=== PATIENT | male | born 1985 | race Caucasian/White ===

== ENCOUNTER 2016-10-13 08:31 | Inpatient (IN) | payer OTHER ==
[~2016-10-13] VITALS: Ht 185.4 cm; Wt 100.0 kg
[2016-10-13] MEDS ORDERED: SOD CHLORIDE 0.9% 1,000 ML IV STA ×3 (09:20→12:19)
--- NOTE | 2016-10-13 09:20 | ERD ---
ER Documentation Chief Complaint Date/Time DATE: 10/13/16 TIME: 09:10 Chief Complaint syncopal episode yesterday, abdominal pain today. and feeling altered HPI 31-year-old male with history of pancreatitis, heroin and alcohol abuse recently in recovery, relapse last week but has been sober for 3 days brought to the ED by his mother for evaluation of abdominal pain and syncopal episode. Yesterday at a fast food restaurant went to the bathroom and had a syncopal episode. Patient states he fell chipping his front tooth was on the floor for approximately 20 minutes before he woke up. Denies neck or back pain. Now with increasing, nonradiating, sharp and crampy epigastric pain and nausea but no vomiting, diarrhea or constipation. He denies hematemesis or hematochezia. No relieving or exacerbating factors. Generalized body aches and malaise. Denies chest pain or palpitation. No shortness of breath or cough. No fevers or chills. ROS All systems reviewed and are negative except as per history of present illness. Medications Home Meds No Active Prescriptions or Reported Meds Allergies Allergies: Coded Allergies: No Known Drug Allergies (Verified Allergy, Unknown, 10/13/16) PMhx/Soc Reviewed in chart. As per HPI per Medical and Surgical Hx: pt denies Surgical Hx Hx Miscellaneous Medical Probl: Yes (pancreatitis) Hx Alcohol Use: Yes Hx Substance Use: No Hx Tobacco Use: Yes Smoking Status: Current some day smoker FmHx No cancer, stroke or sudden cardiac . Physical Exam Vitals Vital Signs Date Time Temp Pulse Resp B/P Pulse Ox O2 Delivery O2 Flow Rate FiO2 10/13/16 11:54 88 18 133/88 100 Room Air 10/13/16 08:35 98.6 109 20 154/92 99 Physical Exam Const: Alert, ill-appearing, anxious in mild distress Head: Atraumatic Eyes: Normal Conjunctiva ENT: Normal External Ears, Nose and Mouth. Neck: Full range of motion. Nontender. No meningismus. Resp: Clear to auscultation bilaterally Cardio: Regular rate and rhythm, no murmurs Abd: Soft, epigastric tenderness. No rebound or guarding. Nondistended Skin: Multiple skin lesions lesions scabs and excoriations. Back: No midline or flank tenderness Ext: No cyanosis, or edema Neur: Awake and alert Psych: Patient appears anxious but not depressed. Result Diagram: 10/13/1658 10/13/16 0958 Results 24 hrs Laboratory Tests Test 10/13/16 09:17 10/13/16 09:58 Urine Amphetamines Screen NEGATIVE Urine Barbiturates NEGATIVE Urine Benzodiazepines Screen NEGATIVE Urine Bilirubin NEGATIVE Urine Cannabinoids NEGATIVE Urine Clarity CLEAR Urine Cocaine Screen NEGATIVE Urine Color YELLOW Urine Glucose NEGATIVE% Urine Hemoglobin 3+ Urine Ketones NEGATIVE Urine Leukocyte Esterase NEGATIVE Urine Microscopic RBC 0-2/HPF Urine Microscopic WBC 0-2/HPF Urine Nitrite NEGATIVE Urine Opiates Screen POSITIVE Urine Specific Erin >=1.030 Urine Total Protein 2+ Urine Urobilinogen 0.2 E.U./dL Urine pH 6.0 Alanine Aminotransferase (ALT/SGPT) 36IU/L Albumin 5.0g/dl Albumin/Globulin Ratio 1.47 Alkaline Phosphatase 119IU/L Anion Gap 22 Aspartate Amino Transf (AST/SGOT) 80IU/L Basophils # 0.010^3/ul Basophils % 0.0% Blood Urea Nitrogen 30mg/dl Calcium Level 8.8mg/dl Carbon Dioxide Level 35mmol/L Chloride Level 87mmol/L Creatinine 1.73mg/dl Direct Bilirubin 0.00mg/dl Eosinophils # 0.010^3/ul Eosinophils % 0.0% Ethyl Alcohol Level < 10.0mg/dl Globulin 3.40g/dl Glucose Level 143mg/dl Hematocrit 43.3% Hemoglobin 15.3g/dl Indirect Bilirubin 1.4mg/dl Lipase 3149U/L Lymphocytes # 1.110^3/ul Lymphocytes % 5.5% Mean Corpuscular Hemoglobin 29.7pg Mean Corpuscular Hemoglobin Concent 35.4g/dl Mean Corpuscular Volume 84.1fl Mean Platelet Volume 8.2fl Monocytes # 1.910^3/ul Monocytes % 10.0% Neutrophils # 16.410^3/ul Neutrophils % 84.5% Nucleated Red Blood Cells # 0.010^3/ul Nucleated Red Blood Cells % 0.0/100WBC Platelet Count 06936^3/UL Potassium Level 4.6mmol/L Red Blood Count 5.1510^6/ul Red Cell Distribution Width 14.4% Sodium Level 139mmol/L Total Bilirubin 1.4mg/dl Total Protein 8.4g/dl White Blood Count 19.410^3/ul Current Medications Medications (Trade) Dose Ordered Sig/Sheryl Route PRN Reason Start Time Stop Time Status Last Admin Dose Admin Sodium Chloride (NS) 1,000 ml @ 1,000 mls/hr Q1H STAT IV 10/13/16 09:20 10/13/16 10:19 DC 10/13/16 09:20 Ondansetron HCl (Zofran Odt) 4 mg ONCE STAT ODT 10/13/16 10:15 10/13/16 10:16 DC 10/13/16 10:21 Ketorolac Tromethamine 15 mg 15 mg ONCE STAT IM 10/13/16 10:15 10/13/16 10:16 DC 10/13/16 10:22 Sodium Chloride (NS) 1,000 ml @ 1,000 mls/hr Q1H STAT IV 10/13/16 10:48 10/13/16 11:47 DC Lidocaine 20 ml 20 ml ONCE ONCE SC 10/13/16 11:30 10/13/16 11:33 DC 10/13/16 13:20 Potassium Chloride/Dextrose/ Sod Cl (D5-1/2ns + KCl 20 Meq) 1,000 ml @ 125 mls/hr Q8H IV 10/13/16 11:58 10/13/16 14:53 IV Flush (NS 3 ml) 3 ml PER PROTOCOL IV 10/13/16 12:00 Ondansetron HCl (Zofran Inj) 4 mg Q6H PRN IV NAUSEA AND/OR VOMITING 10/13/16 12:00 10/13/16 14:53 Morphine Sulfate (morphine) 2 mg Q4H PRN IV SEVERE PAIN LEVEL 7-10 10/13/16 12:00 10/13/16 14:43 DC Morphine Sulfate (morphine) 4 mg ONCE STAT IV 10/13/16 12:12 10/13/16 12:13 DC 10/13/16 12:25 PROCEDURE: CT Brain without contrast. CLINICAL INDICATION: Patient experiencing Syncope/head injury TECHNIQUE: A multiplanar CT of the brain was performed on a CT scanner utilizing axial imaging from the skull base through the vertex without IV contrast. The CTDIvol is 45.01 mGy and the DLP is 720.23 mGycm. One or more of the following dose reduction techniques were utilized: Automated exposure control, adjustment of the mA and/or kV according to patient size, use of iterative reconstruction technique. COMPARISON: None FINDINGS: No evidence of intracranial hemorrhage or abnormal extra-axial fluid collection. The brain parenchyma is normal attenuation morphology with preservation of braxton white differentiation and age appropriate size of the ventricles and subarachnoid spaces. The posterior fossa contents, brainstem, craniocervical junction, orbits, pituitary axis, paranasal sinuses, mastoid air cells, and calvarium are unremarkable. IMPRESSION: 1. No intracranial hemorrhage or acute intracranial. 2. In clinical symptoms persist, MRI is recommended for further evaluation. RPTAT:AAJJ Physician Bebeto Date Time Electronically viewed and signed by Physician Bebeto on 10/13/2016 10:20 VARGAS/ PROCEDURE: US Abdomen. CLINICAL INDICATION: Abdominal Pain TECHNIQUE: Multiple real-time images were acquired of the patient's abdomen utilizing a high resolution transducer. COMPARISON: None FINDINGS: The liver demonstrates increased echogenicity. The liver is normal in size. The liver measures 15.4 cm in length. There are no focal solid lesions seen. There is no intrahepatic biliary duct dilatation. The portal vein is patent with normal direction of flow. No gallstones are identified within the gallbladder. There is no pericholecystic fluid or gallbladder wall thickening. The common bile duct measures 4.4 mm in maximal dimension. The visualized portions of the pancreas are unremarkable. Right kidney is within normal limits and measures 11.6 cm. No free fluid is identified. RPTAT: AA IMPRESSION: Mild fatty infiltration of the liver. Otherwise unremarkable exam. .Medhat Gautam MD, MD Date Time Electronically viewed and signed by .Medhat Gautam MD, MD on 10/13/2016 13:07 .M/ EKG: Time: 14:04. Sinus rhythm. Ventricular rate 80, normal ND and QRS intervals. No acute ST segment elevation or depression. No axis deviation or ectopy. EP Impression: Normal EKG Procedures/MDM DOCUMENTS REVIEWED: ED nurse, no prior records available MEDICAL DECISION MAKIN-year-old male with history of pancreatitis, heroin and alcohol abuse recently in recovery, relapse last week but has been sober for 3 days brought to the ED by his mother for evaluation of abdominal pain and syncopal episode. Elevated lipase consistent with pancreatitis. Acute renal insufficiency and dehydration with BUN/creatinine 30/1.73. Syncopal episode of uncertain etiology. No cardiac dysrhythmia. No CT evidence of acute intracranial injury, bleed, mass or infarct. Leukocytosis without evidence of occult infectious process. Patient be admitted to med/surg for further evaluation and management Counseled patient and family regarding diagnostic workup, diagnosis and need for followup. Understands to return to ED if symptoms recur, worsen or any other concerns. Departure Diagnosis: Primary Impression: Acute pancreatitis Pancreatitis type: unspecified pancreatitis type Acute pancreatitis complication: unspecified Qualified Code: K85.90 - Acute pancreatitis, unspecified complication status, unspecified pancreatitis type Additional Impressions: Acute renal insufficiency Dehydration Opiate abuse, episodic Syncope Syncope type: unspecified Qualified Code: R55 - Syncope, unspecified syncope type Condition: Serious YUN DELGADO MD Oct 13, 2016 09:20 and alcohol abuse recently in recovery, relapse last week but has been sober for 3 days brought to the ED by his mother for evaluation of abdominal pain and syncopal episode. Elevated lipase consistent with pancreatitis. Acute renal insufficiency and dehydration with BUN/creatinine 30/1.73. Syncopal episode of uncertain etiology. No cardiac dysrhythmia. No CT evidence of acute intracranial injury, bleed, mass or infarct. Leukocytosis without evidence of occult infectious process. Patient be admitted to med/surg for further evaluation and management Counseled [patient and family] regarding diagnostic workup, diagnosis and need for followup. Understands to return to ED if symptoms recur, worsen or any other concerns. Departure Diagnosis: Primary Impression: Acute pancreatitis Pancreatitis type: unspecified pancreatitis type Acute pancreatitis complication: unspecified Qualified Code: K85.90 - Acute pancreatitis, unspecified complication status, unspecified pancreatitis type Additional Impressions: Acute renal insufficiency Dehydration Opiate abuse, episodic Syncope Syncope type: unspecified Qualified Code: R55 - Syncope, unspecified syncope type Condition: Serious YUN DELGADO MD Oct 13, 2016 09:20
[2016-10-13 09:39] LABS: ADD UMIC YES; URINE BILIRUBIN (Dip) NEGATIVE (NEGATIVE); URINE BLOOD (Dip) 3+ (NEGATIVE); URINE COLOR YELLOW (YELLOW); URINE GLUCOSE (Dip) NEGATIVE (NEGATIVE); URINE KETONES (Dip) NEGATIVE (NEGATIVE); URINE LEUKOCYTE ESTERASE (Dip) NEGATIVE (NEGATIVE); URINE NITRITE (Dip) NEGATIVE (NEGATIVE); URINE TOTAL PROTEIN (Dip) 2+ (NEGATIVE); URINE UROBILINOGEN (Dip) 0.2 E.U./dL (0.1-1.0)
[2016-10-13 09:52] LABS: URINE RBCS 0-2 /HPF (0)
[2016-10-13 10:13] LABS: HEMATOCRIT 43.3 % (42.0-52.0); HEMOGLOBIN 15.3 g/dl (14.0-18.0); LYMPHOCYTES # 1.1 10^3/ul (0.8-2.9); LYMPHOCYTES % 5.5 % (15.0-51.0); MEAN CORPUSCULAR HEMOGLOBIN 29.7 pg (29.0-33.0); MEAN CORPUSCULAR HGB CONC 35.4 g/dl (32.0-37.0); MEAN CORPUSCULAR VOLUME 84.1 fl (82.0-101.0); MEAN PLATELET VOLUME 8.2 fl (7.4-10.4); MONOCYTE # 1.9 10^3/ul (0.3-0.9); NEUTROPHIL # 16.4 10^3/ul (1.6-7.5); NEUTROPHILS % 84.5 % (39.0-77.0); PLATELET COUNT 207 10^3/UL (140-440); RED BLOOD COUNT 5.15 10^6/ul (4.70-6.10); RED CELL DISTRIBUTION WIDTH 14.4 % (11.5-14.5); UNCORRECTED WBC 19.4 10^3/ul (4.8-10.8); WHITE BLOOD COUNT 19.4 10^3/ul (4.8-10.8)
[2016-10-13 10:15] LABS: CHLORIDE 87 mmol/L (97-110); POTASSIUM 4.6 mmol/L (3.5-5.1); SODIUM 139 mmol/L (135-144)
[2016-10-13] MEDS ORDERED: KETOROLAC 15 MG INJ IM STA (10:15)
[2016-10-13] MEDS ORDERED: ONDANSETRON (ODT) 4 MG TAB ODT STA (10:15)
[2016-10-13 10:18] LABS: ALANINE AMINOTRANSFERASE 36 IU/L (13-69); ALBUMIN/GLOBULIN RATIO 1.47; ALKALINE PHOSPHATASE 119 IU/L (42-121); ANION GAP 22 (8-16); ASPARTATE AMINO TRANSFERASE 80 IU/L (15-46); BILIRUBIN,INDIRECT 1.4 mg/dl (0-1.1); BILIRUBIN,TOTAL 1.4 mg/dl (0.2-1.3); BLOOD UREA NITROGEN 30 mg/dl (7-20); CALCIUM 8.8 mg/dl (8.4-10.2); CARBON DIOXIDE 35 mmol/L (21-31); CREATININE 1.73 mg/dl (0.61-1.24); GLUCOSE 143 mg/dl (70-220); TOTAL PROTEIN 8.4 g/dl (6.1-8.1)
[2016-10-13 10:19] LABS: CONDITION 1
--- NOTE | 2016-10-13 10:21 | RADRPT ---
PROCEDURE: CT Brain without contrast. CLINICAL INDICATION: Patient experiencing Syncope/head injury TECHNIQUE: A multiplanar CT of the brain was performed on a CT scanner utilizing axial imaging fro m the skull base through the vertex without IV contrast. The CTDIvol is 45.01 mGy and the DLP is 72 0.23 mGycm. One or more of the following dose reduction techniques were utilized: Automated exposu re control, adjustment of the mA and/or kV according to patient size, use of iterative reconstructio n technique. COMPARISON: None FINDINGS: No evidence of intracranial hemorrhage or abnormal extra-axial fluid collection. The brain parenchyma is normal attenuation morphology with preservation of braxton white differentiatio n and age appropriate size of the ventricles and subarachnoid spaces. The posterior fossa contents, brainstem, craniocervical junction, orbits, pituitary axis, paranasal sinuses, mastoid air cells, and calvarium are unremarkable. IMPRESSION: 1. No intracranial hemorrhage or acute intracranial. 2. In clinical symptoms persist, MRI is recommended for further evaluation. RPTAT:AAJJ Physician Bebeto Date Time Electronically viewed and signed by Physician Bebeto on 10/13/2016 10:20 VARGAS/
[2016-10-13 11:08] LABS: ETHANOL < 10.0 mg/dl
[2016-10-13 11:11] LABS: BARBITURATES NEGATIVE (NEGATIVE); BENZODIAZEPINES NEGATIVE (NEGATIVE); CANNABINOIDS NEGATIVE (NEGATIVE); COCAINE NEGATIVE (NEGATIVE); OPIATES POSITIVE (NEGATIVE)
[2016-10-13] MEDS ORDERED: LIDOCAINE 1% (MDV) 20 ML INJ SC ONE (11:30)
[2016-10-13] MEDS ORDERED: morphine 2 MG INJ IV PRN (12:00)
[2016-10-13] MEDS ORDERED: NACL 0.9% 3 ML SYG IV SCH (12:00)
[2016-10-13] MEDS ORDERED: morphine 4 MG/ML VIAL IV STA (12:12)
[2016-10-13] MEDS ORDERED: ONDANSETRON 4 MG INJ IV PRN (12:30)
[2016-10-13] MEDS ORDERED: ACETAMINOPHEN 325 MG TAB PO PRN (12:30)
--- NOTE | 2016-10-13 13:07 | RADRPT ---
PROCEDURE: US Abdomen. CLINICAL INDICATION: Abdominal Pain TECHNIQUE: Multiple real-time images were acquired of the patient's abdomen utilizing a high resol ution transducer. COMPARISON: None FINDINGS: The liver demonstrates increased echogenicity. The liver is normal in size. The liver measures 15.4 cm in length. There are no focal solid lesions seen. There is no intrahepatic biliary duct dilatatio n. The portal vein is patent with normal direction of flow. No gallstones are identified within the gallbladder. There is no pericholecystic fluid or gallbladd er wall thickening. The common bile duct measures 4.4 mm in maximal dimension. The visualized portions of the pancreas are unremarkable. Right kidney is within normal limits and measures 11.6 cm. No free fluid is identified. RPTAT: AA IMPRESSION: Mild fatty infiltration of the liver. Otherwise unremarkable exam. .Medhat Gautam MD, Date Time Electronically viewed and signed by .Medhat Gautam MD, on 10/13/2016 13:07 .Lilian/
[2016-10-13 14:38] VITALS: BP 131/85; RESP 20
[2016-10-13] MEDS ORDERED: HYDROmorphONE 1 MG/ML SYG IV STA (14:41)
--- NOTE | 2016-10-13 14:47 | RADRPT ---
PROCEDURE: XR Chest. CLINICAL INDICATION: Left PICC line placement. TECHNIQUE: Single AP portable chest COMPARISON: None. FINDINGS: The cardiomediastinal silhouette is within normal limits. Left PICC line tip overlies the cavoatrial junction .The lungs are clear though pleural effusion or focal consolidation. No pneumothorax. The osseous structures and soft tissues are unremarkable. IMPRESSION: 1. No evidence for active cardiopulmonary disease. 2. Left PICC line catheter tip in satisfactory position. RPTAT:AAJJ Daniel Silva Physician Date Time Electronically viewed and signed by Physician Bebeto on 10/13/2016 14:47 VARGAS/
[2016-10-13] MEDS: ONDANSETRON 4 MG INJ IV PRN ×2 (14:53→22:50)
[2016-10-13] MEDS: D5W-0.45 NACL + KCL 20 MEQ 1,000 ML IV SCH ×2 (14:53→19:58)
--- NOTE | 2016-10-13 15:14 | RADRPT ---
PROCEDURE: Ultrasound proximal upper extremity for PICC placement CLINICAL INDICATION: PICC placement TECHNIQUE: Sonographic evaluation of the proximal left upper extremity vessels was performed utilizi ng a high-frequency linear transducer. COMPARISON: None available FINDINGS: Limited evaluation of the proximal upper extremity for vascular access for PICC placement. Grossly, no abnormality is seen. IMPRESSION: 1. Unremarkable limited proximal left upper extremity ultrasound for PICC placement. RPTAT: HDWR .Hernandez Reis MD, MD Date Time Electronically viewed and signed by .Hernandez Reis MD, MD on 10/13/2016 15:14 .R/
[2016-10-13 15:17] VITALS: Ht 185.4 cm; Wt 100.0 kg
[2016-10-13] MEDS: PIPER-TAZO 3.375 GM IV (PMX) 100 ML IVPB SCH ×2 (15:37→21:33)
--- NOTE | 2016-10-13 17:08 | HP ---
DATE OF ADMISSION: 10/13/2016 TIME OF EVALUATION: 1300 hours. REASON FOR ADMISSION: Abdominal pain. HISTORY OF PRESENT ILLNESS: This is a 31-year-old male with a past medical history of pancreatitis, heroin and alcohol abuse, recently in recovery, with last alcohol consumption approximately 3 days ago. The patient was brought to the emergency room by his mother for evaluation of abdominal pain. The patient also verbalized that he had a syncopal episode at a fast food restaurant on . The patient verbalized that he fell face down with resultant chipping of the front tooth and some nasal bleed. He was on the floor for approximately 20 minutes before he woke up by himself. The patient verbalized the abdominal pain as sharp, epigastric and crampy with associated nausea and poor oral intake. The patient denied any diarrhea or constipation. He denied any melena or hematemesis. The patient was complaining of generalized body aches and malaise. He denied any chest pain, dyspnea, palpitations or headache. In the emergency room, the patient was noticed to have leukocytosis. The patient was also noticed to have an elevated lipase level (3149). The patient was also noticed to be in acute renal failure with a BUN and creatinine of 30 and 1.7. The patient's urine drug toxicology in the emergency room was positive for opioids. The patient underwent a brain CT scan in the emergency room that was negative for any acute intracranial findings. The patient underwent a gallbladder ultrasound that showed mild fatty infiltration of the liver with no evidence of any cholelithiasis. In the emergency room, the patient was treated with IV analgesics and IV fluids. PAST MEDICAL HISTORY: Pancreatitis. PAST SURGICAL HISTORY: Denies. HOME MEDICATIONS: None. ALLERGIES: NONE. SOCIAL HISTORY: Current some day smoker. He used to be a heroin abuser, but currently staying clean. Prior history of alcohol abuse and has been staying sober until the recent episode of drinking. REVIEW OF SYSTEMS: A 12-point review of systems were negative other that what is mentioned in history of present illness. PHYSICAL EXAMINATION: VITAL SIGNS: Temperature 98.2, pulse rate 88, respiratory rate 20, blood pressure 131/87, oxygen saturation 100% on room air. GENERAL: This is a well-built, well-nourished male patient lying in bed in mild to moderate distress secondary to underlying pain. HEENT: Head normocephalic and atraumatic. Eyes: Anicteric sclerae. Conjunctivae clear. ENT: Nasal septum is midline. Oral mucosa is dry. NECK: Supple. No JVD noticed. RESPIRATORY: Bilaterally diminished breath sounds. No adventitious breath sounds heard. No use of accessory muscles of respiration. CARDIAC: Regular rate and rhythm. No murmurs heard. GASTROINTESTINAL: Abdomen soft. Diffuse tenderness to touch. Abdominal guarding. Bowel sounds hypoactive in all 4 quadrants. GENITOURINARY: Deferred. EXTREMITIES: No cyanosis, no clubbing, no edema. Peripheral pulses are palpable. NEUROLOGIC: The patient is awake, alert and oriented. Cranial nerves are grossly intact. LABORATORY AND DIAGNOSTIC DATA: WBC 19.4, hemoglobin 15.3, hematocrit 43.3, platelet count 207. Sodium 139, potassium 4.6, chloride 87, carbon dioxide 37, anion gap 22, BUN 30, creatinine 1.73, glucose 143, calcium 8.8, total bilirubin 1.4 and direct bilirubin 1.4. AST 80, ALT 36, alkaline phosphatase 190, total protein 8.4, albumin 5.0, globulin 3.40, lipase 3149. Urine drug toxicology. Positive for opioids. Urinalysis: Urine nitrite negative, urine leukocyte esterase negative, urine microscopic WBC 0 to 2, urine hemoglobin 3+, urine total protein 2+, urine glucose negative. Brain CT scan. No acute intracranial hemorrhage or abnormal extraaxial fluid collection. Gallbladder ultrasound. Mild fatty infiltration of the liver. Otherwise, unremarkable exam. 12-lead EKG: Normal sinus rhythm. IMPRESSION: This is a 31-year-old male with past medical history of pancreatitis , who came to the emergency room with multiple complaints who was found to have evidence of acute pancreatitis who will be admitted here for further treatment and evaluation. ASSESSMENT AND PLAN: 1. Acute pancreatitis. Most probably secondary to underlying alcohol abuse. The patient has no evidence of any cholelithiasis. A fasting lipid panel will be obtained to evaluate for any underlying hypertriglyceridemia. The patient will be kept n.p.o. He will be provided with adequate pain control. The patient will be provided with IV fluids. The patient will be started on antibiotics since the patient has underlying leukocytosis. Nevertheless, if there is no evidence of any underlying infection, antibiotics can be discontinued later. 2. Acute kidney injury. Etiology unclear. Most probably secondary to dehydration versus from hemodynamics. Nephrotoxic drugs will be used with caution. The patient will be adequately hydrated using IV fluids. 3. Anion gap metabolic acidosis. Most probably secondary to underlying pancreatitis. The patient will be adequately hydrated using IV fluids. The patient has no evidence of ketosis. 4. Recent episode of syncope. Etiology unclear. This could be secondary to intoxication. The patient's brain CT scan was negative for any acute intracranial findings. If there is high suspicion for other etiologies, further imaging studies will be done. 5. Alcoholism. The patient will be started on a Librium taper to avoid any alcohol withdrawal with delirium. The patient will also be started on p.r.n. IV benzodiazepines for any significant delirium tremens. A social work consult will be obtained. The patient will be provided with a daily banana bag. Plan. The patient will be admitted to inpatient medical/surgical floor. The patient will be kept n.p.o. The patient will be started on DVT prophylaxis and gastrointestinal prophylaxis. The patient will remain a FULL CODE. Activities will be as tolerated. The rest of the patient's management will be based on the clinical course and the results of diagnostic studies. Based on the patient's clinical presentation, he most probably requires at least 2 midnights' stay for further management and evaluation of his clinical presentation. The case and management of this patient was fully discussed with Dr. Kowalski. Approximately 45 minutes was spent on the history and physical on this patient. RAE KOWALSKI MD, AM/ANGELA Conf#: [id number] DID#: [id number] MTDD
[2016-10-13] MEDS: morphine 4 MG/ML VIAL IV PRN ×2 (17:31→21:33)
[2016-10-13 19:43] VITALS: BP 153/96; RESP 18
[2016-10-13] MEDS: HYDROCODONE/APAP (5/325) TAB PO PRN (20:22)
[2016-10-13] MEDS: FAMOTIDINE 20 MG INJ IV SCH (20:22)
[2016-10-13] MEDS: CHLORDIAZEPOXIDE 25 MG CAP PO SCH (20:22)
[2016-10-13] MEDS ORDERED: morphine 2 MG INJ IV ONE (23:00)
[2016-10-14] MEDS: D5W-0.45 NACL + KCL 20 MEQ 1,000 ML IV SCH ×3 (00:18→19:58)
[2016-10-14] MEDS: morphine 4 MG/ML VIAL IV PRN ×3 (00:30→06:12)
[2016-10-14] MEDS: PIPER-TAZO 3.375 GM IV (PMX) 100 ML IVPB SCH ×3 (05:18→21:15)
[2016-10-14 06:26] LABS: CHOL/HDL RATIO 3.1 RATIO; MAGNESIUM 1.3 mg/dl (1.7-2.5); PHOSPHORUS 1.9 mg/dl (2.5-4.9)
[2016-10-14 06:38] LABS: BASOPHILS % 0.1 % (0.0-2.0); HEMATOCRIT 35.3 % (42.0-52.0); HEMOGLOBIN 12.5 g/dl (14.0-18.0); LYMPHOCYTES # 0.5 10^3/ul (0.8-2.9); LYMPHOCYTES % 5.5 % (15.0-51.0); MEAN CORPUSCULAR HEMOGLOBIN 29.9 pg (29.0-33.0); MEAN CORPUSCULAR HGB CONC 35.3 g/dl (32.0-37.0); MEAN CORPUSCULAR VOLUME 84.6 fl (82.0-101.0); MONOCYTE # 0.9 10^3/ul (0.3-0.9); MONOCYTES % 9.6 % (0.0-11.0); NEUTROPHIL # 8.3 10^3/ul (1.6-7.5); NEUTROPHILS % 84.8 % (39.0-77.0); PLATELET COUNT 127 10^3/UL (140-440); RED BLOOD COUNT 4.17 10^6/ul (4.70-6.10); RED CELL DISTRIBUTION WIDTH 14.4 % (11.5-14.5); UNCORRECTED WBC 9.8 10^3/ul (4.8-10.8); WHITE BLOOD COUNT 9.8 10^3/ul (4.8-10.8)
[2016-10-14 06:57] LABS: THYROID STIMULATING HORMONE 0.505 MIU/L (0.465-4.680)
[2016-10-14 06:58] LABS: CONDITION 1
[2016-10-14 07:32] VITALS: BP 136/88; RESP 20
[2016-10-14 07:44] LABS: ALBUMIN 3.1 g/dl (3.3-4.9)
[2016-10-14 07:47] LABS: CREATININE 1.75 mg/dl (0.61-1.24)
[2016-10-14 07:48] LABS: ALBUMIN/GLOBULIN RATIO 1.24; BILIRUBIN,INDIRECT 1.9 mg/dl (0-1.1); BILIRUBIN,TOTAL 1.9 mg/dl (0.2-1.3); CALCIUM 7.4 mg/dl (8.4-10.2); TOTAL PROTEIN 5.6 g/dl (6.1-8.1)
[2016-10-14 08:15] LABS: POTASSIUM 6.8 mmol/L (3.5-5.1)
[2016-10-14] MEDS: CHLORDIAZEPOXIDE 25 MG CAP PO SCH ×3 (09:00→21:03)
[2016-10-14] MEDS: ONDANSETRON 4 MG INJ IV PRN (09:08)
[2016-10-14] MEDS: FAMOTIDINE 20 MG INJ IV SCH ×2 (09:09→21:03)
[2016-10-14] MEDS: HYDROmorphONE 1 MG/ML SYG IV PRN ×5 (09:15→21:15)
--- NOTE | 2016-10-14 09:20 | PN ---
Date/Time of Note Date/Time of Note DATE: 10/14/16 TIME: 09:17 Assessment/Plan VTE Prophylaxis VTE Prophylaxis Intervention: ambulation, SCD's Lines/Catheters IV Catheter Type (from Nrs): PICC Line Central line still needed: Yes Assessment/Plan Chief Complaint/Hosp Course Assessment and plan 1. Acute pancreatitis. Likely secondary to underlying alcohol abuse. No reported evidence of cholelithiasis. We'll continue on IV hydration. Analgesics as needed. 2. Acute kidney injury. Baseline unknown. Appears to be slowly worsening. 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 3. Metabolic acidosis likely secondary to #1. Continue on IV hydration 4. Reported episode of syncope. Etiology unknown. CT scan of the brain was negative for any acute intracranial findings. Of note patient did test positive for opioids upon admission. Suspect secondary to the aforementioned. We'll monitor for now. 5. History of alcohol abuse. 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 Continue on banana bag. 6. Hyperkalemia. Patient noted with normal potassium level yesterday. Will repeat lab and provide with Kayexalate as needed. Disposition and plan: Patient still noted with elevated lipase levels. Still with abdominal pain. Continue with IV hydration and analgesics. Await clinical improvement of pancreatitis. Discussed plan of care with Dr. Schwartz Problems: Subjective 24 Hr Interval Summary Free Text/Dictation Still reports having mid abdominal pain. Exam/Review of Systems Vital Signs Vitals Vital Signs Date Time Temp Pulse Resp B/P Pulse Ox O2 Delivery O2 Flow Rate FiO2 10/14/16 07:32 98.0 77 20 136/88 99 10/13/16 14:05 Room Air Intake and Output 10/13/16 10/13/16 10/14/16 15:00 23:00 07:00 Intake Total 500 ml 1600 ml Output Total 654 ml Balance 500 ml 946 ml Exam General: No acute signs or symptoms of distress Eyes: pupils equal round, Anicteric sclera Neck: Supple nontender, no JVD Cardiac: S1, S2 auscultated, regular rhythm and rate Pulmonary: No coarse rhonchi or breathing auscultated GI: [Pain upon palpation epigastric area Extremities: No edema bilateral lower extremities Skin: Clean dry and intact Neurologic: Alert to person place and time and situation Results Result Diagram: 10/14/1651110/14/16511 Results 24 hrs Laboratory Tests Test 10/13/16 09:58 10/14/16 05:12 10/14/16 08:56 Alanine Aminotransferase (ALT/SGPT) 36 37 Albumin 5.0 H 3.1 #L Albumin/Globulin Ratio 1.47 1.24 Alkaline Phosphatase 119 72 Anion Gap 22 H 16 Aspartate Amino Transf (AST/SGOT) 80 H 60 H Basophils # 0.0 0.0 Basophils % 0.0 0.1 Blood Urea Nitrogen 30 H 24 H Calcium Level 8.8 7.4 L Carbon Dioxide Level 35 H 25 # Chloride Level 87 L 97 # Creatinine 1.73 H 1.75 H Direct Bilirubin 0.00 0.00 Eosinophils # 0.0 0.0 Eosinophils % 0.0 0.0 Ethyl Alcohol Level < 10.0 Globulin 3.40 H 2.50 Glucose Level 143 613 #*H Hematocrit 43.3 35.3 L Hemoglobin 15.3 12.5 L Indirect Bilirubin 1.4 H 1.9 H Lipase 3149 H 2807 H Lymphocytes # 1.1 0.5 L Lymphocytes % 5.5 L 5.5 L Mean Corpuscular Hemoglobin 29.7 29.9 Mean Corpuscular Hemoglobin Concent 35.4 35.3 Mean Corpuscular Volume 84.1 84.6 Mean Platelet Volume 8.2 9.0 Monocytes # 1.9 H 0.9 Monocytes % 10.0 9.6 Neutrophils # 16.4 H 8.3 H Neutrophils % 84.5 H 84.8 H Nucleated Red Blood Cells # 0.0 0.0 Nucleated Red Blood Cells % 0.0 0.0 Platelet Count 207 127 #L Potassium Level 4.6 6.8 #*H Red Blood Count 5.15 4.17 L Red Cell Distribution Width 14.4 14.4 Sodium Level 139 131 L Total Bilirubin 1.4 H 1.9 H Total Protein 8.4 H 5.6 #L White Blood Count 19.4 H 9.8 # Amylase Level 498 H Cholesterol Level 112 Cholesterol/HDL Ratio 3.1 Free Thyroxine 0.95 HDL Cholesterol 36 LDL Cholesterol, Calculated 57 Magnesium Level 1.3 L Phosphorus Level 1.9 L Thyroid Stimulating Hormone (TSH) 0.505 Triglycerides Level 95 Bedside Glucose 126 Medications Medications Current Medications Potassium Chloride/Dextrose/ Sod Cl (D5-1/2ns + KCl 20 Meq) 1,000 ml @ 125 mls/ hr Q8H IV Last administered on 10/14/16 00:18; Admin Dose 125 MLS/HR; Start at 11:58 Ondansetron HCl (Zofran Inj) 4 mg Q6H PRN IV NAUSEA AND/OR VOMITING Last administered on 10/14/16 09:08; Admin Dose 4 MG; Start 10/13/16 at 12:00 Famotidine (Pepcid Iv) 20 mg Q12 IV Last administered on 10/14/16 09:09; Admin Dose 20 MG; Start 10/13/16 at 21:00 IV Flush (NS 10 ml) 10 ml PRN PRN IV IV PROTOCOL; Start 10/13/16 at 14:30 Chlordiazepoxide 50 mg 50 mg TID PO Last administered on 10/14/16 09:00; Admin Dose 50 MG; Start 10/13/16 at 21:00 Multivitamins 10 ml/Thiamine HCl 100 mg/Folic Acid 1 mg/Sodium Chloride 1,011.2 ml @ 125 mls/ hr DAILY@09 IVPB ; Start 10/14/16 at 09:00 Piperacillin Sod/ Tazobactam Sod (Zosyn 3.375gm/ 100 ml (Pmx)) 100 ml @ 200 mls /hr Q8 IVPB Last administered on 10/14/16 05:18; Admin Dose 200 MLS/HR; Start 10/13/16 at 15:30 Acetaminophen/ Hydrocodone Bitart ([place] (5/325)) 1 tab Q6H PRN PO MODERATE PAIN LEVEL 4-6 Last administered on 10/13/16 20:22; Admin Dose 1 TAB; Start at 20:00 Morphine Sulfate (morphine) 4 mg Q3H PRN IV PAIN LEVEL 6-10 Last administered on 10/14/16 06:12; Admin Dose 4 MG; Start 10/13/16 at 23:00 Hydromorphone HCl (Dilaudid) 0.5 mg Q3H PRN IV PAIN; Start 10/14/16 at 09:00 FELIPA CARR Oct 14, 2016 09:20
[2016-10-14 10:32] LABS: POTASSIUM 3.7 mmol/L (3.5-5.1)
[2016-10-14 10:34] LABS: CREATININE 2.03 mg/dl (0.61-1.24)
[2016-10-14 10:35] LABS: CALCIUM 8.6 mg/dl (8.4-10.2)
[2016-10-14] MEDS: MULTIVITAMINS 10 ML, THIAMINE 100 MG, FOLIC ACID 1 MG in SOD CHLORIDE 0.9% 1,000 ML IVPB SCH (11:49)
--- NOTE | 2016-10-14 16:26 | CONS ---
Date/Time of Note Date/Time of Note DATE: 10/14/16 TIME: 16:24 Assessment/Plan Assessment/Plan Additional Assessment/Plan 31 yo Male with 1) Pancreatitis 2) Hyperkalemia -Resolved 3) [place]- Non Oliguric 4) Hypomagnesemia 5) Hypophosphatemia Will cont to monitor UO, Electrolytes, Renal Function Agree with IVFS Repeat labs in am, Check C3C4 Will Urine Electrolytes and check UPC Also Check CK level to R/o Rhabdo Renal US Reviewed and is unremarkable. Will cont to closely follow along with you. Further recommendations to follow. Thank you for the opportunity to participate in the care of Mr Reynoso. 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 The patient was brought to the emergency room for evaluation of abdominal pain. Pt found to have abnormal renal function with no history of CKD. Pt states he is making very good UO, without dysuria or hematuria. Nephrology consulted for ALESIA. Also found to have hyperkalemia however repeat show that this has resolved. Constitutional: No requiring O2 Past Medical History Medical History: other (pancreatitis) Past Surgical History Past Surgical Hx: no surgical history Family History Significant Family History: no pertinent family hx Social History Smoking Status: Former smoker Drug Use: cocaine, heroin Exam/Review of Systems Vital Signs Vitals Vital Signs Date Time Temp Pulse Resp B/P Pulse Ox O2 Delivery O2 Flow Rate FiO2 10/14/16 07:32 98.0 77 20 136/88 99 10/13/16 14:05 Room Air Intake and Output 10/13/16 10/13/16 10/14/16 15:00 23:00 07:00 Intake Total 500 ml 1600 ml Output Total 654 ml Balance 500 ml 946 ml Exam Constitutional: alert, oriented, No distress Head: atraumatic, normocephalic Eyes: EOMI, nl conjunctiva ENMT: mucosa pink and moist Neck: No jvd Respiratory: clear to auscultation, No crackles/rales, No diminished breath sounds, No labored breathing Cardiovascular: regular rate and rhythm, No edema Gastrointestinal: soft, No distended, No rebound or guarding Musculoskeletal: nl extremities to inspection Neurological: BEADER II-XII intact, nl mental status, No confused, No lethargic Skin: nl turgor, No diaphoresis Results Result Diagram: 10/14/16 0512 10/14/16 0925 Results 24 hrs Laboratory Tests Test 10/14/16 05:12 10/14/16 08:56 10/14/16 09:25 Alanine Aminotransferase (ALT/SGPT) 37 Albumin 3.1 #L Albumin/Globulin Ratio 1.24 Alkaline Phosphatase 72 Amylase Level 498 H Anion Gap 16 16 Aspartate Amino Transf (AST/SGOT) 60 H Basophils # 0.0 Basophils % 0.1 Blood Urea Nitrogen 24 H 26 H Calcium Level 7.4 L 8.6 Carbon Dioxide Level 25 # 30 Chloride Level 97 # 96 L Cholesterol Level 112 Cholesterol/HDL Ratio 3.1 Creatinine 1.75 H 2.03 H Direct Bilirubin 0.00 Eosinophils # 0.0 Eosinophils % 0.0 Free Thyroxine 0.95 Globulin 2.50 Glucose Level 613 #*H 120 # HDL Cholesterol 36 Hematocrit 35.3 L Hemoglobin 12.5 L Hemoglobin A1c 4.8 Indirect Bilirubin 1.9 H LDL Cholesterol, Calculated 57 Lipase 2807 H Lymphocytes # 0.5 L Lymphocytes % 5.5 L Magnesium Level 1.3 L Mean Corpuscular Hemoglobin 29.9 Mean Corpuscular Hemoglobin Concent 35.3 Mean Corpuscular Volume 84.6 Mean Platelet Volume 9.0 Monocytes # 0.9 Monocytes % 9.6 Neutrophils # 8.3 H Neutrophils % 84.8 H Nucleated Red Blood Cells # 0.0 Nucleated Red Blood Cells % 0.0 Phosphorus Level 1.9 L Platelet Count 127 #L Potassium Level 6.8 #*H 3.7 # Red Blood Count 4.17 L Red Cell Distribution Width 14.4 Sodium Level 131 L 138 Thyroid Stimulating Hormone (TSH) 0.505 Total Bilirubin 1.9 H Total Protein 5.6 #L Triglycerides Level 95 White Blood Count 9.8 # Bedside Glucose 126 Medications Medications Current Medications Potassium Chloride/Dextrose/ Sod Cl (D5-1/2ns + KCl 20 Meq) 1,000 ml @ 125 mls/ hr Q8H IV Last administered on 10/14/16t 00:18; Admin Dose 125 MLS/HR; Start at 11:58 Ondansetron HCl (Zofran Inj) 4 mg Q6H PRN IV NAUSEA AND/OR VOMITING Last administered on 10/14/16 09:08; Admin Dose 4 MG; Start 10/13/16 at 12:00 Famotidine (Pepcid Iv) 20 mg Q12 IV Last administered on 10/14/16 09:09; Admin Dose 20 MG; Start 10/13/16 at 21:00 IV Flush (NS 10 ml) 10 ml PRN PRN IV IV PROTOCOL; Start 10/13/16 at 14:30 Chlordiazepoxide 50 mg 50 mg TID PO Last administered on 10/14/16 14:03; Admin Dose 50 MG; Start 10/13/16 at 21:00 Multivitamins 10 ml/Thiamine HCl 100 mg/Folic Acid 1 mg/Sodium Chloride 1,011.2 ml @ 125 mls/ hr DAILY@09 IVPB Last administered on 10/14/16 11:49; Admin Dose 125 MLS/HR; Start 10/14/16 at 09:00 Piperacillin Sod/ Tazobactam Sod (Zosyn 3.375gm/ 100 ml (Pmx)) 100 ml @ 200 mls /hr Q8 IVPB Last administered on 10/14/16 14:03; Admin Dose 200 MLS/HR; Start 10/13/16 at 15:30 Acetaminophen/ Hydrocodone Bitart ([place] (5/325)) 1 tab Q6H PRN PO MODERATE PAIN LEVEL 4-6 Last administered on 10/13/16 20:22; Admin Dose 1 TAB; Start at 20:00 Morphine Sulfate (morphine) 4 mg Q3H PRN IV PAIN LEVEL 6-10 Last administered on 10/14/16 06:12; Admin Dose 4 MG; Start 10/13/16 at 23:00 Hydromorphone HCl (Dilaudid) 0.5 mg Q3H PRN IV PAIN Last administered on 14:57; Admin Dose 0.5 MG; Start 10/14/16 at 09:00 Procedures Procedures PROCEDURE: XR Chest. CLINICAL INDICATION: Left PICC line placement. TECHNIQUE: Single AP portable chest COMPARISON: None. FINDINGS: The cardiomediastinal silhouette is within normal limits. Left PICC line tip overlies the cavoatrial junction .The lungs are clear though pleural effusion or focal consolidation. No pneumothorax. The osseous structures and soft tissues are unremarkable. IMPRESSION: 1. No evidence for active cardiopulmonary disease. 2. Left PICC line catheter tip in satisfactory position. RPTAT:AAJJ Daniel Silva Physician Date Time Electronically viewed and signed by Daniel Silva Physician on 10/13/2016 14:47 PROCEDURE: Retroperitoneal US. CLINICAL INDICATION: ABNORMAL CREATININE TECHNIQUE: Multiple sonographic images of the retroperitoneum were obtained. The images were reviewed on a PACS workstation. COMPARISON: No prior studies are available for comparison. FINDINGS: The right kidney measures 12.2 cm. The left kidney measures 12.5 cm. The renal parenchymal echotexture is normal. There is no hydronephrosis. There is no focal renal mass or calcification seen. The bladder is grossly unremarkable. IMPRESSION: Unremarkable retroperitoneal sonogram. JANESSA ZAZUETA MD Oct 14, 2016 16:26
[2016-10-14] MEDS: HYDROCODONE/APAP (5/325) TAB PO PRN (16:29)
[2016-10-14 17:22] LABS: ADD UMIC YES; URINE BILIRUBIN (Dip) NEGATIVE (NEGATIVE); URINE BLOOD (Dip) 2+ (NEGATIVE); URINE COLOR LT. YELLOW (YELLOW); URINE GLUCOSE (Dip) NEGATIVE (NEGATIVE); URINE KETONES (Dip) NEGATIVE (NEGATIVE); URINE LEUKOCYTE ESTERASE (Dip) NEGATIVE (NEGATIVE); URINE NITRITE (Dip) NEGATIVE (NEGATIVE); URINE TOTAL PROTEIN (Dip) 1+ (NEGATIVE); URINE UROBILINOGEN (Dip) 0.2 E.U./dL (0.1-1.0)
--- NOTE | 2016-10-14 18:14 | RADRPT ---
PROCEDURE: Retroperitoneal US. CLINICAL INDICATION: ABNORMAL CREATININE TECHNIQUE: Multiple sonographic images of the retroperitoneum were obtained. The images were revi ewed on a PACS workstation. COMPARISON: No prior studies are available for comparison. FINDINGS: The right kidney measures 12.2 cm. The left kidney measures 12.5 cm. The renal parenchymal echotexture is normal. There is no hydronephrosis. There is no focal renal mass or calcification seen. The bladder is grossly unremarkable. IMPRESSION: Unremarkable retroperitoneal sonogram. RPTAT: EE Physician Raj Date Time Electronically viewed and signed by Physician Raj on 10/14/2016 18:14 /
[2016-10-14 18:31] LABS: TRANSITIONAL EPI CELLS,URINE OCCASIONAL
[2016-10-14 19:00] VITALS: BP 132/78; RESP 18
[2016-10-15] MEDS: HYDROmorphONE 1 MG/ML SYG IV PRN ×8 (00:08→21:11)
[2016-10-15] MEDS: D5W-0.45 NACL + KCL 20 MEQ 1,000 ML IV SCH ×3 (03:58→19:58)
[2016-10-15 05:41] LABS: BASOPHILS % 0.1 % (0.0-2.0); EOSINOPHILS # 0.2 10^3/ul (0.0-0.5); EOSINOPHILS % 2.2 % (0.0-7.0); HEMATOCRIT 37.1 % (42.0-52.0); HEMOGLOBIN 12.8 g/dl (14.0-18.0); LYMPHOCYTES # 0.8 10^3/ul (0.8-2.9); LYMPHOCYTES % 10.5 % (15.0-51.0); MEAN CORPUSCULAR HEMOGLOBIN 30.2 pg (29.0-33.0); MEAN CORPUSCULAR HGB CONC 34.6 g/dl (32.0-37.0); MEAN CORPUSCULAR VOLUME 87.3 fl (82.0-101.0); MEAN PLATELET VOLUME 8.5 fl (7.4-10.4); MONOCYTE # 0.6 10^3/ul (0.3-0.9); MONOCYTES % 7.9 % (0.0-11.0); NEUTROPHIL # 5.7 10^3/ul (1.6-7.5); NEUTROPHILS % 79.3 % (39.0-77.0); PLATELET COUNT 111 10^3/UL (140-440); RED BLOOD COUNT 4.25 10^6/ul (4.70-6.10); RED CELL DISTRIBUTION WIDTH 14.1 % (11.5-14.5); UNCORRECTED WBC 7.2 10^3/ul (4.8-10.8); WHITE BLOOD COUNT 7.2 10^3/ul (4.8-10.8)
[2016-10-15 06:01] LABS: POTASSIUM 3.9 mmol/L (3.5-5.1)
[2016-10-15 06:04] LABS: CREATININE 1.75 mg/dl (0.61-1.24)
[2016-10-15 06:05] LABS: CALCIUM 8.6 mg/dl (8.4-10.2); CONDITION 1; MAGNESIUM 2.1 mg/dl (1.7-2.5)
[2016-10-15] MEDS: PIPER-TAZO 3.375 GM IV (PMX) 100 ML IVPB SCH ×2 (06:11→14:26)
[2016-10-15 07:48] VITALS: BP 124/74; RESP 16
[2016-10-15] MEDS: CHLORDIAZEPOXIDE 25 MG CAP PO SCH ×3 (08:30→21:10)
[2016-10-15] MEDS: FAMOTIDINE 20 MG INJ IV SCH ×2 (08:30→21:10)
[2016-10-15] MEDS: MULTIVITAMINS 10 ML, THIAMINE 100 MG, FOLIC ACID 1 MG in SOD CHLORIDE 0.9% 1,000 ML IVPB SCH (08:34)
--- NOTE | 2016-10-15 11:02 | CONS ---
Date/Time of Note Date/Time of Note DATE: 10/15/16 TIME: 11:01 Assessment/Plan Assessment/Plan Chief Complaint/Hosp Course 31 yo Male with 1) Pancreatitis 2) Hyperkalemia -Resolved 3) [place]- Non Oliguric 4) Hypomagnesemia 5) Hypophosphatemia 6) Mild Rhabdomyolysis. Will cont to monitor UO, Electrolytes, Renal Function Cont with IVFS Cont to monitor CK levels daily until normalized Renal US Reviewed and is unremarkable. Will cont to closely follow along with you. Further recommendations to follow. Thank you for the opportunity to participate in the care of Mr Reynoso. Problems: Consultation Date/Type/Reason Admit Date/Time Oct 13, 2016 at 12:18 Initial Consult Date Type of Consultation: Nephrology Reason for Consultation [id number] Referring Provider: FELIPA CARR 24 HR Interval Summary Free Text/Dictation NO new complaints, Good UO, No muscle pain. 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 YELLOW Urine Glucose NEGATIVE Urine Hemoglobin 2+ H Urine Ketones NEGATIVE Urine Leukocyte Esterase NEGATIVE Urine Microscopic RBC 2-5 Urine Microscopic WBC 0-2 Urine Nitrite NEGATIVE Urine Random Creatinine 85.93 Urine Random Sodium 101 H Urine Specific [place] 1.010 Urine Total Protein 1+ H Urine Transitional Epithelial Cells OCCASIONAL Urine Urobilinogen 0.2 E.U./dL Urine pH 7.0 Creatine Kinase 877 H 766 H Anion Gap 14 Basophils # 0.0 Basophils % 0.1 Blood Urea Nitrogen 20 Calcium Level 8.6 Carbon Dioxide Level 28 Chloride Level 99 Creatinine 1.75 H Eosinophils # 0.2 Eosinophils % 2.2 Glucose Level 111 Hematocrit 37.1 L Hemoglobin 12.8 L Lipase 1072 H Lymphocytes # 0.8 Lymphocytes % 10.5 L Magnesium Level 2.1 Mean Corpuscular Hemoglobin 30.2 Mean Corpuscular Hemoglobin Concent 34.6 Mean Corpuscular Volume 87.3 Mean Platelet Volume 8.5 Monocytes # 0.6 Monocytes % 7.9 Neutrophils # 5.7 Neutrophils % 79.3 H Nucleated Red Blood Cells # 0.0 Nucleated Red Blood Cells % 0.0 Platelet Count 111 L Potassium Level 3.9 Red Blood Count 4.25 L Red Cell Distribution Width 14.1 Sodium Level 137 White Blood Count 7.2 # Medications Medications Current Medications Potassium Chloride/Dextrose/ Sod Cl (D5-1/2ns + KCl 20 Meq) 1,000 ml @ 125 mls/ hr Q8H IV Last administered on 10/15/16 06:19; Admin Dose 125 MLS/HR; Start at 11:58 Ondansetron HCl (Zofran Inj) 4 mg Q6H PRN IV NAUSEA AND/OR VOMITING Last administered on 10/14/16 09:08; Admin Dose 4 MG; Start 10/13/16 at 12:00 Famotidine (Pepcid Iv) 20 mg Q12 IV Last administered on 10/15/16 08:30; Admin Dose 20 MG; Start 10/13/16 at 21:00 IV Flush (NS 10 ml) 10 ml PRN PRN IV IV PROTOCOL; Start 10/13/16 at 14:30 Chlordiazepoxide 50 mg 50 mg TID PO Last administered on 10/15/16 08:30; Admin Dose 50 MG; Start 10/13/16 at 21:00 Multivitamins 10 ml/Thiamine HCl 100 mg/Folic Acid 1 mg/Sodium Chloride 1,011.2 ml @ 125 mls/ hr DAILY@09 IVPB Last administered on 10/15/16 08:34; Admin Dose 125 MLS/HR; Start 10/14/16 at 09:00 Piperacillin Sod/ Tazobactam Sod (Zosyn 3.375gm/ 100 ml (Pmx)) 100 ml @ 200 mls /hr Q8 IVPB Last administered on 10/15/16 06:11; Admin Dose 200 MLS/HR; Start 10/13/16 at 15:30 Acetaminophen/ Hydrocodone Bitart ([place] (5/325)) 1 tab Q6H PRN PO MODERATE PAIN LEVEL 4-6 Last administered on 10/14/16 16:29; Admin Dose 1 TAB; Start at 20:00 Morphine Sulfate (morphine) 4 mg Q3H PRN IV PAIN LEVEL 6-10 Last administered on 10/14/16 06:12; Admin Dose 4 MG; Start 10/13/16 at 23:00 Hydromorphone HCl (Dilaudid) 0.5 mg Q3H PRN IV PAIN Last administered on 09:04; Admin Dose 0.5 MG; Start 10/14/16 at 09:00 JANESSA ZAZUETA MD Oct 15, 2016 11:02
--- NOTE | 2016-10-15 14:21 | PN ---
Date/Time of Note Date/Time of Note DATE: 10/15/16 TIME: 14:13 Assessment/Plan VTE Prophylaxis VTE Prophylaxis Intervention: SCD's Lines/Catheters IV [facility] Type (from [facility] PICC Line Central line still needed: Yes Assessment/Plan Chief Complaint/Hosp Course Assessment and plan 1. Acute pancreatitis. Likely secondary to underlying alcohol abuse. No reported evidence of cholelithiasis. We'll continue on IV hydration. Analgesics as needed. 2. Acute kidney injury. Baseline unknown. Appears to be slowly worsening. 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 3. Metabolic acidosis likely secondary to #1. Continue on IV hydration 4. Reported episode of syncope. Etiology unknown. CT scan of the brain was negative for any acute intracranial findings. Of note patient did test positive for opioids upon admission. Suspect secondary to the aforementioned. We'll monitor for now. 5. History of alcohol abuse. 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 Continue on banana bag. 6. Hyperkalemia. Patient noted with normal potassium level yesterday. Will repeat lab and provide with Kayexalate as needed. Disposition and plan: still with abdominal pain but less today. Will await clinical improvement prior to starting diet. Discussed plan of care with Dr. cShwartz Problems: Subjective 24 Hr Interval Summary Free Text/Dictation still reports having mid epigastric pain, better today Exam/Review of Systems Vital Signs Vitals Vital Signs Date Time Temp Pulse Resp B/P Pulse Ox O2 Delivery O2 Flow Rate FiO2 10/15/16 07:48 97.5 70 16 124/74 98 10/13/16 14:05 Room Air Intake and Output 10/14/16 10/14/16 10/15/16 15:00 23:00 07:00 Intake Total 600 ml 500 ml Output Total 600 ml 650 ml Balance 600 ml -100 ml -650 ml Exam General: No acute signs or symptoms of distress Eyes: pupils equal round, Anicteric sclera Neck: Supple nontender, no JVD Cardiac: S1, S2 auscultated, regular rhythm and rate Pulmonary: No coarse rhonchi or breathing auscultated GI: [Pain upon palpation epigastric area Extremities: No edema bilateral lower extremities Skin: Clean dry and intact Neurologic: Alert to person place and time and situation Results Result Diagram: 10/15/16 0508 10/15/16 0508 Results 24 hrs Laboratory Tests Test 10/14/16 17:00 10/14/16 22:40 10/15/16 05:08 Urine Bilirubin NEGATIVE Urine Clarity CLEAR Urine Color LT. YELLOW Urine Glucose NEGATIVE Urine Hemoglobin 2+ H Urine Ketones NEGATIVE Urine Leukocyte Esterase NEGATIVE Urine Microscopic RBC 2-5 Urine Microscopic WBC 0-2 Urine Nitrite NEGATIVE Urine Random Creatinine 85.93 Urine Random Sodium 101 H Urine Specific [place] 1.010 Urine Total Protein 1+ H Urine Transitional Epithelial Cells OCCASIONAL Urine Urobilinogen 0.2 E.U./dL Urine pH 7.0 Creatine Kinase 877 H 766 H Anion Gap 14 Basophils # 0.0 Basophils % 0.1 Blood Urea Nitrogen 20 Calcium Level 8.6 Carbon Dioxide Level 28 Chloride Level 99 Creatinine 1.75 H Eosinophils # 0.2 Eosinophils % 2.2 Glucose Level 111 Hematocrit 37.1 L Hemoglobin 12.8 L Lipase 1072 H Lymphocytes # 0.8 Lymphocytes % 10.5 L Magnesium Level 2.1 Mean Corpuscular Hemoglobin 30.2 Mean Corpuscular Hemoglobin Concent 34.6 Mean Corpuscular Volume 87.3 Mean Platelet Volume 8.5 Monocytes # 0.6 Monocytes % 7.9 Neutrophils # 5.7 Neutrophils % 79.3 H Nucleated Red Blood Cells # 0.0 Nucleated Red Blood Cells % 0.0 Platelet Count 111 L Potassium Level 3.9 Red Blood Count 4.25 L Red Cell Distribution Width 14.1 Sodium Level 137 White Blood Count 7.2 # Medications Medications Current Medications Potassium Chloride/Dextrose/ Sod Cl (D5-1/2ns + KCl 20 Meq) 1,000 ml @ 125 mls/ hr Q8H IV Last administered on 10/15/16 06:19; Admin Dose 125 MLS/HR; Start at 11:58 Ondansetron HCl (Zofran Inj) 4 mg Q6H PRN IV NAUSEA AND/OR VOMITING Last administered on 10/14/16 09:08; Admin Dose 4 MG; Start 10/13/16 at 12:00 Famotidine (Pepcid Iv) 20 mg Q12 IV Last administered on 10/15/16 08:30; Admin Dose 20 MG; Start 10/13/16 at 21:00 IV Flush (NS 10 ml) 10 ml PRN PRN IV IV PROTOCOL; Start 10/13/16 at 14:30 Chlordiazepoxide 50 mg 50 mg TID PO Last administered on 10/15/16 12:07; Admin Dose 50 MG; Start 10/13/16 at 21:00 Multivitamins 10 ml/Thiamine HCl 100 mg/Folic Acid 1 mg/Sodium Chloride 1,011.2 ml @ 125 mls/ hr DAILY@09 IVPB Last administered on 10/15/16 08:34; Admin Dose 125 MLS/HR; Start 10/14/16 at 09:00 Piperacillin Sod/ Tazobactam Sod (Zosyn 3.375gm/ 100 ml (Pmx)) 100 ml @ 200 mls /hr Q8 IVPB Last administered on 10/15/16 06:11; Admin Dose 200 MLS/HR; Start 10/13/16 at 15:30 Acetaminophen/ Hydrocodone Bitart ([place] (5/325)) 1 tab Q6H PRN PO MODERATE PAIN LEVEL 4-6 Last administered on 10/14/16 16:29; Admin Dose 1 TAB; Start at 20:00 Morphine Sulfate (morphine) 4 mg Q3H PRN IV PAIN LEVEL 6-10 Last administered on 10/14/16 06:12; Admin Dose 4 MG; Start 10/13/16 at 23:00 Hydromorphone HCl (Dilaudid) 0.5 mg Q3H PRN IV PAIN Last administered on 12:07; Admin Dose 0.5 MG; Start 10/14/16 at 09:00 FELIPA CARR Oct 15, 2016 14:21
[2016-10-15 16:40] LABS: COMPLEMENT C3 90 mg/dl (88-165); COMPLEMENT C4 20 mg/dl (14-44)
[2016-10-15] MEDS: HYDROCODONE/APAP (5/325) TAB PO PRN (17:42)
[2016-10-15 19:43] VITALS: BP 137/88; RESP 18
[2016-10-16] MEDS: HYDROmorphONE 1 MG/ML SYG IV PRN ×6 (00:59→21:12)
[2016-10-16] MEDS: D5W-0.45 NACL + KCL 20 MEQ 1,000 ML IV SCH ×3 (01:01→19:59)
[2016-10-16 06:26] LABS: BASOPHILS % 0.4 % (0.0-2.0); EOSINOPHILS # 0.3 10^3/ul (0.0-0.5); EOSINOPHILS % 5.6 % (0.0-7.0); HEMATOCRIT 35.1 % (42.0-52.0); HEMOGLOBIN 12.1 g/dl (14.0-18.0); LYMPHOCYTES # 0.7 10^3/ul (0.8-2.9); LYMPHOCYTES % 15.3 % (15.0-51.0); MEAN CORPUSCULAR HEMOGLOBIN 29.9 pg (29.0-33.0); MEAN CORPUSCULAR HGB CONC 34.4 g/dl (32.0-37.0); MEAN CORPUSCULAR VOLUME 86.8 fl (82.0-101.0); MEAN PLATELET VOLUME 8.7 fl (7.4-10.4); MONOCYTE # 0.4 10^3/ul (0.3-0.9); MONOCYTES % 9.3 % (0.0-11.0); NEUTROPHIL # 3.3 10^3/ul (1.6-7.5); NEUTROPHILS % 69.4 % (39.0-77.0); PLATELET COUNT 103 10^3/UL (140-440); RED BLOOD COUNT 4.04 10^6/ul (4.70-6.10); RED CELL DISTRIBUTION WIDTH 13.7 % (11.5-14.5); UNCORRECTED WBC 4.8 10^3/ul (4.8-10.8); WHITE BLOOD COUNT 4.8 10^3/ul (4.8-10.8)
[2016-10-16 06:44] LABS: CONDITION 1
[2016-10-16 06:48] LABS: POTASSIUM 3.7 mmol/L (3.5-5.1)
[2016-10-16 06:51] LABS: CALCIUM 8.4 mg/dl (8.4-10.2); CREATININE 1.5 mg/dl (0.61-1.24)
[2016-10-16 07:57] VITALS: BP 132/78; RESP 18
[2016-10-16] MEDS: CHLORDIAZEPOXIDE 25 MG CAP PO SCH ×3 (08:11→21:12)
[2016-10-16] MEDS: FAMOTIDINE 20 MG INJ IV SCH ×2 (08:11→21:12)
[2016-10-16] MEDS: MULTIVITAMINS 10 ML, THIAMINE 100 MG, FOLIC ACID 1 MG in SOD CHLORIDE 0.9% 1,000 ML IVPB SCH (09:15)
[2016-10-16] MEDS ORDERED: HYDR-906 PO (09:40)
[2016-10-16] MEDS ORDERED: SENN-53 PO (09:40)
[2016-10-16] MEDS ORDERED: FOLI-49 PO (09:40)
--- NOTE | 2016-10-16 09:42 | PDOCDIS ---
Discharge Instructions DIAGNOSIS Discharge Diagnosis: 1. Alcoholic Pancreatitis 2. rhabdomyolysis 3. acute kidney injury CONDITION Patient Condition: Stable HOME CARE INSTRUCTIONS: Diet Instructions: Low Fat /Cholesterol FOLLOW UP/APPOINTMENTS Appointments 1. Follow up with your primary care provider in one week 2. Follow up with Dr. Rodrigo Sherman in one week OTHER ORDERS: Other Orders: 1. Stop alcohol consumption FELIPA CARR Oct 16, 2016 09:42
[2016-10-16 10:46] LABS: CREATINE KINASE 428 IU/L (23-200)
--- NOTE | 2016-10-16 14:48 | PN ---
Date/Time of Note Date/Time of Note DATE: 10/16/16 TIME: 14:46 Assessment/Plan VTE Prophylaxis VTE Prophylaxis Intervention: ambulation, SCD's Lines/Catheters IV Catheter Type (from Nrs): PICC Line Central line still needed: Yes Assessment/Plan Chief Complaint/Hosp Course Assessment and plan 1. Acute pancreatitis. Likely secondary to underlying alcohol abuse. No reported evidence of cholelithiasis. We'll continue on IV hydration. Analgesics as needed. Improving at present 2. Acute kidney injury. Baseline unknown. Appears to be slowly worsening. We'll get in shop service technician to follow. 3. Metabolic acidosis likely secondary to #1. Continue on IV hydration 4. Reported episode of syncope. Etiology unknown. CT scan of the brain was negative for any acute intracranial findings. Of note patient did test positive for opioids upon admission. Suspect secondary to the aforementioned. We'll monitor for now. 5. History of alcohol abuse. 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 Continue on banana bag. 6. Hyperkalemia. Stable at present we'll monitor 7. Rhabdomyolysis. Continue IV hydration. Await for clinical improvement Disposition and plan: Trial diet. Continue analgesics. Continue with IV hydration. Discharge include by consultants. Follow up on renal panel Discussed plan of care with Dr. Schwartz Problems: Subjective 24 Hr Interval Summary Free Text/Dictation Reports less abdominal pain at this time. Exam/Review of Systems Vital Signs Vitals Vital Signs Date Time Temp Pulse Resp B/P Pulse Ox O2 Delivery O2 Flow Rate FiO2 10/16/16 07:57 97.5 84 18 132/78 99 10/13/16 14:05 Room Air Intake and Output 10/15/16 10/15/16 10/16/16 15:00 23:00 07:00 Intake Total 1261.2 ml Output Total 600 ml 1650 ml Balance 661.2 ml -1650 ml Exam General: [No acute signs or symptoms of distress] Eyes: [pupils equal round, Anicteric sclera] Neck: Supple nontender, no JVD Cardiac: [S1, S2 auscultated, regular rhythm and rate] Pulmonary: [No coarse rhonchi or breathing auscultated] GI: Minimal pain on palpation Extremities: [No edema bilateral lower extremities] Skin: [Clean dry and intact] Neurologic: [Alert to person place and time and situation] Results Result Diagram: 2/1/17 0540 10/16/16 0540 Results 24 hrs Laboratory Tests Test 10/16/16 05:40 Anion Gap 15 Basophils # 0.0 Basophils % 0.4 Blood Urea Nitrogen 17 Calcium Level 8.4 Carbon Dioxide Level 26 Chloride Level 104 Creatine Kinase 428 #H Creatinine 1.50 H Eosinophils # 0.3 Eosinophils % 5.6 Glucose Level 90 Hematocrit 35.1 L Hemoglobin 12.1 L Lipase 556 H Lymphocytes # 0.7 L Lymphocytes % 15.3 Mean Corpuscular Hemoglobin 29.9 Mean Corpuscular Hemoglobin Concent 34.4 Mean Corpuscular Volume 86.8 Mean Platelet Volume 8.7 Monocytes # 0.4 Monocytes % 9.3 Neutrophils # 3.3 Neutrophils % 69.4 Nucleated Red Blood Cells # 0.0 Nucleated Red Blood Cells % 0.0 Platelet Count 103 L Potassium Level 3.7 Red Blood Count 4.04 L Red Cell Distribution Width 13.7 Sodium Level 141 White Blood Count 4.8 # Medications Medications Current Medications Potassium Chloride/Dextrose/ Sod Cl (D5-1/2ns + KCl 20 Meq) 1,000 ml @ 125 mls/ hr Q8H IV Last administered on 10/16/16 01:01; Admin Dose 125 MLS/HR; Start at 11:58 Ondansetron HCl (Zofran Inj) 4 mg Q6H PRN IV NAUSEA AND/OR VOMITING Last administered on 10/14/16 09:08; Admin Dose 4 MG; Start 10/13/16 at 12:00 Famotidine (Pepcid Iv) 20 mg Q12 IV Last administered on 10/16/16 08:11; Admin Dose 20 MG; Start 10/13/16 at 21:00 IV Flush (NS 10 ml) 10 ml PRN PRN IV IV PROTOCOL; Start 10/13/16 at 14:30 Chlordiazepoxide 50 mg 50 mg TID PO Last administered on 10/16/16 12:53; Admin Dose 50 MG; Start 10/13/16 at 21:00 Multivitamins/ Thiamine HCl/ Folic Acid/Sodium Chloride (Mvi-12 Adult/ Vitamin B1/Folic Acid/NS) 1,011.2 ml @ 125 mls/ hr DAILY@09 IVPB Last administered on 10/16/16 09:15; Admin Dose 125 MLS/HR; Start 10/14/16 at 09:00 Acetaminophen/ Hydrocodone Bitart ([place] (5/325)) 1 tab Q6H PRN PO MODERATE PAIN LEVEL 4-6 Last administered on 10/15/16 17:42; Admin Dose 1 TAB; Start at 20:00 Morphine Sulfate (morphine) 4 mg Q3H PRN IV PAIN LEVEL 6-10 Last administered on 10/14/16 06:12; Admin Dose 4 MG; Start 10/13/16 at 23:00 Hydromorphone HCl (Dilaudid) 0.5 mg Q3H PRN IV PAIN Last administered on 12:53; Admin Dose 0.5 MG; Start 10/14/16 at 09:00 FELIPA CARR Oct 16, 2016 14:48
--- NOTE | 2016-10-16 17:21 | CONS ---
Date/Time of Note Date/Time of Note DATE: 10/16/16 TIME: 17:21 Assessment/Plan Assessment/Plan Chief Complaint/Hosp Course 31 yo Male with 1) Pancreatitis 2) Hyperkalemia -Resolved 3) [place]- Non Oliguric 4) Hypomagnesemia 5) Hypophosphatemia 6) Mild Rhabdomyolysis. Will cont to monitor UO, Electrolytes, Renal Function Cont with IVFS Cont to monitor CK levels daily until normalized Renal US Reviewed and is unremarkable. Will cont to closely follow along with you. Further recommendations to follow. Thank you for the opportunity to participate in the care of Mr Reynoso. Problems: Consultation Date/Type/Reason Admit Date/Time Oct 13, 2016 at 12:18 Type of Consultation: Nephrology Referring Provider: FELIPA CARR Exam/Review of Systems Vital Signs Vitals Vital Signs Date Time Temp Pulse Resp B/P Pulse Ox O2 Delivery O2 Flow Rate FiO2 10/16/16 07:57 97.5 84 18 132/78 99 10/13/16 14:05 Room Air Intake and Output 10/15/16 10/15/16 10/16/16 15:00 23:00 07:00 Intake Total 1261.2 ml Output Total 600 ml 1650 ml Balance 661.2 ml -1650 ml Results Result Diagram: 10/16/16 0540 10/16/16 0540 Results 24 hrs Laboratory Tests Test 10/16/16 05:40 Anion Gap 15 Basophils # 0.0 Basophils % 0.4 Blood Urea Nitrogen 17 Calcium Level 8.4 Carbon Dioxide Level 26 Chloride Level 104 Creatine Kinase 428 #H Creatinine 1.50 H Eosinophils # 0.3 Eosinophils % 5.6 Glucose Level 90 Hematocrit 35.1 L Hemoglobin 12.1 L Lipase 556 H Lymphocytes # 0.7 L Lymphocytes % 15.3 Mean Corpuscular Hemoglobin 29.9 Mean Corpuscular Hemoglobin Concent 34.4 Mean Corpuscular Volume 86.8 Mean Platelet Volume 8.7 Monocytes # 0.4 Monocytes % 9.3 Neutrophils # 3.3 Neutrophils % 69.4 Nucleated Red Blood Cells # 0.0 Nucleated Red Blood Cells % 0.0 Platelet Count 103 L Potassium Level 3.7 Red Blood Count 4.04 L Red Cell Distribution Width 13.7 Sodium Level 141 White Blood Count 4.8 # Medications Medications Current Medications Potassium Chloride/Dextrose/ Sod Cl (D5-1/2ns + KCl 20 Meq) 1,000 ml @ 125 mls/ hr Q8H IV Last administered on 10/16/16 01:01; Admin Dose 125 MLS/HR; Start at 11:58 Ondansetron HCl (Zofran Inj) 4 mg Q6H PRN IV NAUSEA AND/OR VOMITING Last administered on 10/14/16 09:08; Admin Dose 4 MG; Start 10/13/16 at 12:00 Famotidine (Pepcid Iv) 20 mg Q12 IV Last administered on 10/16/16 08:11; Admin Dose 20 MG; Start 10/13/16 at 21:00 IV Flush (NS 10 ml) 10 ml PRN PRN IV IV PROTOCOL; Start 10/13/16 at 14:30 Chlordiazepoxide 50 mg 50 mg TID PO Last administered on 10/16/16 12:53; Admin Dose 50 MG; Start 10/13/16 at 21:00 Multivitamins/ Thiamine HCl/ Folic Acid/Sodium Chloride (Mvi-12 Adult/ Vitamin B1/Folic Acid/NS) 1,011.2 ml @ 125 mls/ hr DAILY@09 IVPB Last administered on 10/16/16 09:15; Admin Dose 125 MLS/HR; Start 10/14/16 at 09:00 Acetaminophen/ Hydrocodone Bitart ([place] (5/325)) 1 tab Q6H PRN PO MODERATE PAIN LEVEL 4-6 Last administered on 10/15/16 17:42; Admin Dose 1 TAB; Start at 20:00 Morphine Sulfate (morphine) 4 mg Q3H PRN IV PAIN LEVEL 6-10 Last administered on 10/14/16 06:12; Admin Dose 4 MG; Start 10/13/16 at 23:00 Hydromorphone HCl (Dilaudid) 0.5 mg Q3H PRN IV PAIN Last administered on 12:53; Admin Dose 0.5 MG; Start 10/14/16 at 09:00 JANESSA ZAZUETA MD Oct 16, 2016 17:21
[2016-10-16 20:00] VITALS: BP 137/85; RESP 18
[2016-10-17] MEDS: D5W-0.45 NACL + KCL 20 MEQ 1,000 ML IV SCH ×4 (01:21→19:11)
[2016-10-17] MEDS: HYDROmorphONE 1 MG/ML SYG IV PRN ×6 (01:42→21:53)
[2016-10-17 06:25] LABS: BASOPHILS % 0.5 % (0.0-2.0); EOSINOPHILS # 0.2 10^3/ul (0.0-0.5); EOSINOPHILS % 5.3 % (0.0-7.0); HEMATOCRIT 35.1 % (42.0-52.0); HEMOGLOBIN 12.2 g/dl (14.0-18.0); LYMPHOCYTES # 1.1 10^3/ul (0.8-2.9); LYMPHOCYTES % 26.9 % (15.0-51.0); MEAN CORPUSCULAR HEMOGLOBIN 30.3 pg (29.0-33.0); MEAN CORPUSCULAR HGB CONC 34.8 g/dl (32.0-37.0); MEAN PLATELET VOLUME 8.9 fl (7.4-10.4); MONOCYTE # 0.4 10^3/ul (0.3-0.9); NEUTROPHIL # 2.2 10^3/ul (1.6-7.5); NEUTROPHILS % 56.3 % (39.0-77.0); PLATELET COUNT 124 10^3/UL (140-440); RED BLOOD COUNT 4.03 10^6/ul (4.70-6.10); RED CELL DISTRIBUTION WIDTH 14.1 % (11.5-14.5)
[2016-10-17 07:02] LABS: POTASSIUM 4.2 mmol/L (3.5-5.1)
[2016-10-17 07:04] LABS: CREATININE 1.56 mg/dl (0.61-1.24)
[2016-10-17 07:05] LABS: CALCIUM 8.9 mg/dl (8.4-10.2)
[2016-10-17 07:12] LABS: CONDITION 1
[2016-10-17 07:30] VITALS: BP 126/75; RESP 20
[2016-10-17] MEDS: CHLORDIAZEPOXIDE 25 MG CAP PO SCH ×2 (10:01→13:47)
[2016-10-17] MEDS: FAMOTIDINE 20 MG INJ IV SCH (10:02)
[2016-10-17] MEDS: MULTIVITAMINS 10 ML, THIAMINE 100 MG, FOLIC ACID 1 MG in SOD CHLORIDE 0.9% 1,000 ML IVPB SCH (10:02)
[2016-10-17 10:29] LABS: CREATINE KINASE 260 IU/L (23-200)
--- NOTE | 2016-10-17 15:32 | PN ---
Date/Time of Note Date/Time of Note DATE: 10/17/16 TIME: 15:29 Assessment/Plan VTE Prophylaxis VTE Prophylaxis Intervention: SCD's Lines/Catheters [facility] PICC Line Central line still needed: Yes Assessment/Plan Chief Complaint/Hosp Course Assessment and plan 1. Acute pancreatitis. Likely secondary to underlying alcohol abuse. No reported evidence of cholelithiasis. We'll continue on IV hydration. Analgesics as needed. Improving at present 2. Acute kidney injury. Baseline unknown. Appears to be slowly worsening. We'll get bearing ring assembler to follow. 3. Metabolic acidosis likely secondary to #1. Continue on IV hydration 4. Reported episode of syncope. Etiology unknown. CT scan of the brain was negative for any acute intracranial findings. Of note patient did test positive for opioids upon admission. Suspect secondary to the aforementioned. We'll monitor for now. 5. History of alcohol abuse. 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 Continue on banana bag. 6. Hyperkalemia. Stable at present we'll monitor 7. Rhabdomyolysis. Continue IV hydration. Await for clinical improvement Disposition and plan: tolerating diet well. no s/s of distress. creatinine slightly worse. d/c when cleared by consultants Discussed plan of care with Dr. Schwartz Problems: Subjective 24 Hr Interval Summary Free Text/Dictation less reported abd pain at this time Exam/Review of Systems Vital Signs Vitals Vital Signs Date Time Temp Pulse Resp B/P Pulse Ox O2 Delivery O2 Flow Rate FiO2 10/17/16 07:30 97.6 71 20 126/75 99 10/13/16 14:05 Room Air Intake and Output 10/16/16 10/16/16 10/17/16 15:00 23:00 07:00 Intake Total 1000 ml 1101.0112 ml 1700 ml Output Total 1000 ml 1000 ml Balance 1000 ml 101.0112 ml 700 ml Exam General: No acute signs or symptoms of distress Eyes: pupils equal round, Anicteric sclera Neck: Supple nontender, no JVD Cardiac: S1, S2 auscultated, regular rhythm and rate Pulmonary: No coarse rhonchi or breathing auscultated GI: Abdomen soft nontender nondistended, bowel sounds active Extremities: No edema bilateral lower extremities Skin: Clean dry and intact Neurologic: Alert to person place and time and situation Results Result Diagram: 10/17/16 0550 10/17/16 0550 Results 24 hrs Laboratory Tests Test 10/17/16 05:50 10/17/16 08:45 10/17/16 08:48 Anion Gap 17 H Basophils # 0.0 Basophils % 0.5 Blood Urea Nitrogen 19 Calcium Level 8.9 Carbon Dioxide Level 25 Chloride Level 105 Creatine Kinase 260 #H Creatinine 1.56 H Eosinophils # 0.2 Eosinophils % 5.3 Glucose Level 98 Hematocrit 35.1 L Hemoglobin 12.2 L Lipase 748 H Lymphocytes # 1.1 Lymphocytes % 26.9 Mean Corpuscular Hemoglobin 30.3 Mean Corpuscular Hemoglobin Concent 34.8 Mean Corpuscular Volume 87.0 Mean Platelet Volume 8.9 Monocytes # 0.4 Monocytes % 11.0 Neutrophils # 2.2 Neutrophils % 56.3 Nucleated Red Blood Cells # 0.0 Nucleated Red Blood Cells % 0.0 Platelet Count 124 #L Potassium Level 4.2 Red Blood Count 4.03 L Red Cell Distribution Width 14.1 Sodium Level 143 White Blood Count 4.0 L Lab Scanned Report REFERENCE LAB REFERENCE LAB Medications Medications Current Medications Potassium Chloride/Dextrose/ Sod Cl (D5-1/2ns + KCl 20 Meq) 1,000 ml @ 75 mls/ hr [id number] IV Last administered on 10/17/16 01:21; Admin Dose 150 MLS/HR; Start 10/13/16 at 11:58 Ondansetron HCl (Zofran Inj) 4 mg Q6H PRN IV NAUSEA AND/OR VOMITING Last administered on 10/14/16 09:08; Admin Dose 4 MG; Start 10/13/16 at 12:00 Famotidine (Pepcid Iv) 20 mg Q12 IV Last administered on 10/17/16 10:02; Admin Dose 20 MG; Start 10/13/16 at 21:00 IV Flush 10 ml 10 ml PRN PRN IV IV PROTOCOL; Start 10/13/16 at 14:30 Multivitamins/ Thiamine HCl/ Folic Acid/Sodium Chloride (Mvi-12 Adult/ Vitamin B1/Folic Acid/NS) 1,011.2 ml @ 125 mls/ hr DAILY@09 IVPB Last administered on 10/17/16 10:02; Admin Dose 125 MLS/HR; Start 10/14/16 at 09:00 Acetaminophen/ Hydrocodone Bitart ([place] (5/325)) 1 tab Q6H PRN PO MODERATE PAIN LEVEL 4-6 Last administered on 10/15/16 17:42; Admin Dose 1 TAB; Start at 20:00 Morphine Sulfate (morphine) 4 mg Q3H PRN IV PAIN LEVEL 6-10 Last administered on 10/14/16 06:12; Admin Dose 4 MG; Start 10/13/16 at 23:00 Hydromorphone HCl (Dilaudid) 0.5 mg Q3H PRN IV PAIN Last administered on 14:51; Admin Dose 0.5 MG; Start 10/14/16 at 09:00 Chlordiazepoxide (Librium) 50 mg TID PRN PO tremors; Start 10/17/16 at 15:00 FELIPA CARR Oct 17, 2016 15:32
[2016-10-17 19:00] VITALS: BP 125/71; RESP 18
[2016-10-17] MEDS: FAMOTIDINE 20 MG TAB PO SCH (20:13)
[2016-10-17] MEDS: CHLORDIAZEPOXIDE 25 MG CAP PO PRN (20:20)
--- NOTE | 2016-10-17 20:21 | CONS ---
Date/Time of Note Date/Time of Note DATE: 10/17/16 TIME: 20:17 Assessment/Plan Assessment/Plan Chief Complaint/Hosp Course change Librium to PRN Cut down IV Fluids Problems: Consultation Date/Type/Reason Admit Date/Time Oct 13, 2016 at 12:18 Initial Consult Date Type of Consultation: Nephrology Referring Provider: FELIPA CARR 24 HR Interval Summary Constitutional: improved, other Exam/Review of Systems Vital Signs Vitals Vital Signs Date Time Temp Pulse Resp B/P Pulse Ox O2 Delivery O2 Flow Rate FiO2 10/17/16 07:30 97.6 71 20 126/75 99 10/13/16 14:05 Room Air Intake and Output 10/16/16 10/16/16 10/17/16 15:00 23:00 07:00 Intake Total 1000 ml 1101.0112 ml 1700 ml Output Total 1000 ml 1000 ml Balance 1000 ml 101.0112 ml 700 ml Exam Constitutional: alert, oriented Psych: no complaints Head: normocephalic Neck: supple Respiratory: clear to auscultation Cardiovascular: nl pulses, regular rate and rhythm Gastrointestinal: soft Neurological: WASH BARREL LEADER II-XII intact Skin: nl turgor Results BUN/Creat unchanged Result Diagram: 10/17/16 0550 10/17/16 0550 Results 24 hrs Laboratory Tests Test 10/17/16 05:50 10/17/16 08:45 10/17/16 08:48 Anion Gap 17 H Basophils # 0.0 Basophils % 0.5 Blood Urea Nitrogen 19 Calcium Level 8.9 Carbon Dioxide Level 25 Chloride Level 105 Creatine Kinase 260 #H Creatinine 1.56 H Eosinophils # 0.2 Eosinophils % 5.3 Glucose Level 98 Hematocrit 35.1 L Hemoglobin 12.2 L Lipase 748 H Lymphocytes # 1.1 Lymphocytes % 26.9 Mean Corpuscular Hemoglobin 30.3 Mean Corpuscular Hemoglobin Concent 34.8 Mean Corpuscular Volume 87.0 Mean Platelet Volume 8.9 Monocytes # 0.4 Monocytes % 11.0 Neutrophils # 2.2 Neutrophils % 56.3 Nucleated Red Blood Cells # 0.0 Nucleated Red Blood Cells % 0.0 Platelet Count 124 #L Potassium Level 4.2 Red Blood Count 4.03 L Red Cell Distribution Width 14.1 Sodium Level 143 White Blood Count 4.0 L Lab Scanned Report REFERENCE LAB REFERENCE LAB Medications Medications Current Medications Potassium Chloride/Dextrose/ Sod Cl (D5-1/2ns + KCl 20 Meq) 1,000 ml @ 75 mls/ hr [id number] IV Last administered on 10/17/16 19:11; Admin Dose 75 MLS/HR; Start 10/13/16 at 11:58 Ondansetron HCl (Zofran Inj) 4 mg Q6H PRN IV NAUSEA AND/OR VOMITING Last administered on 10/14/16 09:08; Admin Dose 4 MG; Start 10/13/16 at 12:00 IV Flush 10 ml 10 ml PRN PRN IV IV PROTOCOL; Start 10/13/16 at 14:30 Multivitamins/ Thiamine HCl/ Folic Acid/Sodium Chloride (Mvi-12 Adult/ Vitamin B1/Folic Acid/NS) 1,011.2 ml @ 125 mls/ hr DAILY@09 IVPB Last administered on 10/17/16 10:02; Admin Dose 125 MLS/HR; Start 10/14/16 at 09:00 Acetaminophen/ Hydrocodone Bitart ([place] (5/325)) 1 tab Q6H PRN PO MODERATE PAIN LEVEL 4-6 Last administered on 10/15/16 17:42; Admin Dose 1 TAB; Start at 20:00 Morphine Sulfate (morphine) 4 mg Q3H PRN IV PAIN LEVEL 6-10 Last administered on 10/14/16 06:12; Admin Dose 4 MG; Start 10/13/16 at 23:00 Hydromorphone HCl (Dilaudid) 0.5 mg Q3H PRN IV PAIN Last administered on 18:50; Admin Dose 0.5 MG; Start 10/14/16 at 09:00 Chlordiazepoxide (Librium) 50 mg TID PRN PO tremors; Start 10/17/16 at 15:00 Famotidine (Pepcid) 20 mg BID PO Last administered on 10/17/16 20:13; Admin Dose 20 MG; Start 10/17/16 at 21:00 GORDO TIWARI MD Oct 17, 2016 20:21
[2016-10-18] MEDS: HYDROmorphONE 1 MG/ML SYG IV PRN ×6 (01:21→21:18)
[2016-10-18] MEDS: D5W-0.45 NACL + KCL 20 MEQ 1,000 ML IV SCH ×2 (05:26→18:07)
[2016-10-18 06:27] LABS: BASOPHILS % 0.3 % (0.0-2.0); EOSINOPHILS # 0.2 10^3/ul (0.0-0.5); EOSINOPHILS % 5.5 % (0.0-7.0); HEMATOCRIT 34.6 % (42.0-52.0); HEMOGLOBIN 11.9 g/dl (14.0-18.0); LYMPHOCYTES % 24.5 % (15.0-51.0); MEAN CORPUSCULAR HEMOGLOBIN 30.1 pg (29.0-33.0); MEAN CORPUSCULAR HGB CONC 34.6 g/dl (32.0-37.0); MEAN CORPUSCULAR VOLUME 87.1 fl (82.0-101.0); MEAN PLATELET VOLUME 8.9 fl (7.4-10.4); MONOCYTE # 0.5 10^3/ul (0.3-0.9); MONOCYTES % 12.1 % (0.0-11.0); NEUTROPHIL # 2.4 10^3/ul (1.6-7.5); NEUTROPHILS % 57.6 % (39.0-77.0); PLATELET COUNT 131 10^3/UL (140-440); RED BLOOD COUNT 3.97 10^6/ul (4.70-6.10); RED CELL DISTRIBUTION WIDTH 14.4 % (11.5-14.5); UNCORRECTED WBC 4.2 10^3/ul (4.8-10.8); WHITE BLOOD COUNT 4.2 10^3/ul (4.8-10.8)
[2016-10-18 06:30] LABS: POTASSIUM 4.2 mmol/L (3.5-5.1)
[2016-10-18 06:32] LABS: CREATININE 1.47 mg/dl (0.61-1.24)
[2016-10-18 07:39] LABS: CONDITION 1
[2016-10-18 07:59] VITALS: BP 123/66; RESP 18
[2016-10-18] MEDS: FAMOTIDINE 20 MG TAB PO SCH ×2 (08:37→21:17)
[2016-10-18] MEDS: MULTIVITAMINS 10 ML, THIAMINE 100 MG, FOLIC ACID 1 MG in SOD CHLORIDE 0.9% 1,000 ML IVPB SCH (09:24)
[2016-10-18] MEDS: CHLORDIAZEPOXIDE 25 MG CAP PO PRN ×2 (12:09→21:17)
--- NOTE | 2016-10-18 14:26 | PN ---
Date/Time of Note Date/Time of Note DATE: 10/18/16 TIME: 14:24 Assessment/Plan VTE Prophylaxis VTE Prophylaxis Intervention: SCD's Lines/Catheters IV [facility] P[facility] Line Central line still needed: Yes Assessment/Plan Chief Complaint/Hosp Course Assessment and plan 1. Acute pancreatitis. Likely secondary to underlying alcohol abuse. No reported evidence of cholelithiasis. We'll continue on IV hydration. Analgesics as needed. Improving at present 2. Acute kidney injury. Baseline unknown. Appears to be slowly worsening. We'll get client services account manager to follow. 3. Metabolic acidosis likely secondary to #1. Continue on IV hydration 4. Reported episode of syncope. Etiology unknown. CT scan of the brain was negative for any acute intracranial findings. Of note patient did test positive for opioids upon admission. Suspect secondary to the aforementioned. We'll monitor for now. 5. History of alcohol abuse. 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 Continue on banana bag. 6. Hyperkalemia. Stable at present we'll monitor 7. Rhabdomyolysis. Continue IV hydration. Await for clinical improvement Disposition and plan: follow up amylase/lipase. cont with nephro recs. d/c when medically stable and cleared by consultants Discussed plan of care with Dr. Schwartz Problems: Subjective 24 Hr Interval Summary Free Text/Dictation no s/s of distress. reports less abd pain Exam/Review of Systems Vital Signs Vitals Vital Signs Date Time Temp Pulse Resp B/P Pulse Ox O2 Delivery O2 Flow Rate FiO2 10/18/16 07:59 97.8 78 18 123/66 100 Intake and Output 10/17/16 10/17/16 10/18/16 15:00 23:00 07:00 Intake Total 400 ml 1200 ml 2470 ml Output Total 1500 ml 1550 ml Balance 400 ml -300 ml 920 ml Exam General: No acute signs or symptoms of distress Eyes: pupils equal round, Anicteric sclera Neck: Supple nontender, no JVD Cardiac: S1, S2 auscultated, regular rhythm and rate Pulmonary: No coarse rhonchi or breathing auscultated GI: Abdomen soft nontender nondistended, bowel sounds active Extremities: No edema bilateral lower extremities Skin: Clean dry and intact Neurologic: Alert to person place and time and situation Results Result Diagram: 10/18/1630 10/18/16 0530 Results 24 hrs Laboratory Tests Test 10/18/16 05:30 Anion Gap 16 Basophils # 0.0 Basophils % 0.3 Blood Urea Nitrogen 22 H Calcium Level 9.0 Carbon Dioxide Level 25 Chloride Level 105 Creatinine 1.47 H Eosinophils # 0.2 Eosinophils % 5.5 Glucose Level 98 Hematocrit 34.6 L Hemoglobin 11.9 L Lymphocytes # 1.0 Lymphocytes % 24.5 Mean Corpuscular Hemoglobin 30.1 Mean Corpuscular Hemoglobin Concent 34.6 Mean Corpuscular Volume 87.1 Mean Platelet Volume 8.9 Monocytes # 0.5 Monocytes % 12.1 H Neutrophils # 2.4 Neutrophils % 57.6 Nucleated Red Blood Cells # 0.0 Nucleated Red Blood Cells % 0.0 Platelet Count 131 L Potassium Level 4.2 Red Blood Count 3.97 L Red Cell Distribution Width 14.4 Sodium Level 142 White Blood Count 4.2 L Medications Medications Current Medications Potassium Chloride/Dextrose/ Sod Cl (D5-1/2ns + KCl 20 Meq) 1,000 ml @ 75 mls/ hr [id number] IV Last administered on 10/17/16 19:11; Admin Dose 75 MLS/HR; Start 10/13/16 at 11:58 Ondansetron HCl (Zofran Inj) 4 mg Q6H PRN IV NAUSEA AND/OR VOMITING Last administered on 10/14/16 09:08; Admin Dose 4 MG; Start 10/13/16 at 12:00 IV Flush 10 ml 10 ml PRN PRN IV IV PROTOCOL; Start 10/13/16 at 14:30 Multivitamins/ Thiamine HCl/ Folic Acid/Sodium Chloride (Mvi-12 Adult/ Vitamin B1/Folic Acid/NS) 1,011.2 ml @ 125 mls/ hr DAILY@09 IVPB Last administered on 10/18/16 09:24; Admin Dose 125 MLS/HR; Start 10/14/16 at 09:00 Acetaminophen/ Hydrocodone Bitart ([place] (5/325)) 1 tab Q6H PRN PO MODERATE PAIN LEVEL 4-6 Last administered on 10/15/16 17:42; Admin Dose 1 TAB; Start at 20:00 Morphine Sulfate (morphine) 4 mg Q3H PRN IV PAIN LEVEL 6-10 Last administered on 1/30/17at 06:12; Admin Dose 4 MG; Start 10/13/16 at 23:00 Hydromorphone HCl (Dilaudid) 0.5 mg Q3H PRN IV PAIN Last administered on 09:29; Admin Dose 0.5 MG; Start 10/14/16 at 09:00 Chlordiazepoxide (Librium) 50 mg TID PRN PO tremors Last administered on 12:09; Admin Dose 50 MG; Start 10/17/16 at 15:00 Famotidine (Pepcid) 20 mg BID PO Last administered on 10/18/16 08:37; Admin Dose 20 MG; Start 10/17/16 at 21:00 FELIPA CARR Oct 18, 2016 14:26
[2016-10-18 15:39] LABS: ADD UMIC NO; URINE BILIRUBIN (Dip) NEGATIVE (NEGATIVE); URINE BLOOD (Dip) NEGATIVE (NEGATIVE); URINE COLOR LT. YELLOW (YELLOW); URINE GLUCOSE (Dip) NEGATIVE (NEGATIVE); URINE KETONES (Dip) NEGATIVE (NEGATIVE); URINE LEUKOCYTE ESTERASE (Dip) NEGATIVE (NEGATIVE); URINE NITRITE (Dip) NEGATIVE (NEGATIVE); URINE TOTAL PROTEIN (Dip) NEGATIVE (NEGATIVE); URINE UROBILINOGEN (Dip) 0.2 E.U./dL (0.1-1.0)
[2016-10-18 15:51] LABS: AMYLASE 154 U/L (11-123)
--- NOTE | 2016-10-18 19:43 | CONS ---
Date/Time of Note Date/Time of Note DATE: 10/18/16 TIME: 19:40 Assessment/Plan Assessment/Plan Chief Complaint/Hosp Course change Librium to PRN Cut down IV Fluids Problems: Additional Assessment/Plan Amylase Lipase continue to trend down. Discussed with SLITTER SERVICE AND SETTER Should be ok to dc pt pending psych/social eval so he can be referred alcohol rehab Consultation Date/Type/Reason Admit Date/Time Oct 13, 2016 at 12:18 Initial Consult Date Discussion re alcohol use Type of Consultation: Nephrology Referring Provider: FELIPA CARR Exam/Review of Systems Vital Signs Vitals Vital Signs Date Time Temp Pulse Resp B/P Pulse Ox O2 Delivery O2 Flow Rate FiO2 10/18/16 07:59 97.8 78 18 123/66 100 Intake and Output 10/17/16 10/17/16 10/18/16 15:00 23:00 07:00 Intake Total 400 ml 1200 ml 2470 ml Output Total 1500 ml 1550 ml Balance 400 ml -300 ml 920 ml Exam Constitutional: alert, oriented, well developed Head: atraumatic, normocephalic Eyes: EOMI, PERRL, nl conjunctiva, nl lids, nl sclera ENMT: nl external ears & nose, nl lips & teeth, nl nasal mucosa & septum Neck: non-tender, supple Respiratory: clear to auscultation, normal air movement Cardiovascular: nl pulses, regular rate and rhythm Gastrointestinal: nl liver, spleen, non-tender, soft Musculoskeletal: nl extremities to inspection, nl gait and stance Extremities: normal pulses Neurological: TYPESETTING MACHINE OPERATOR/TENDER II-XII intact, nl mental status, nl speech, nl strength Skin: nl turgor, No rash or lesions Additional Comments Renal fn has improved a little & should normalize Results Result Diagram: 10/18/16 0530 10/18/16 0530 Results 24 hrs Laboratory Tests Test 10/18/16 05:30 10/18/16 14:45 Amylase Level 154 H Anion Gap 16 Basophils # 0.0 Basophils % 0.3 Blood Urea Nitrogen 22 H Calcium Level 9.0 Carbon Dioxide Level 25 Chloride Level 105 Creatinine 1.47 H Eosinophils # 0.2 Eosinophils % 5.5 Glucose Level 98 Hematocrit 34.6 L Hemoglobin 11.9 L Lipase 503 H Lymphocytes # 1.0 Lymphocytes % 24.5 Mean Corpuscular Hemoglobin 30.1 Mean Corpuscular Hemoglobin Concent 34.6 Mean Corpuscular Volume 87.1 Mean Platelet Volume 8.9 Monocytes # 0.5 Monocytes % 12.1 H Neutrophils # 2.4 Neutrophils % 57.6 Nucleated Red Blood Cells # 0.0 Nucleated Red Blood Cells % 0.0 Phosphorus Level 4.4 Platelet Count 131 L Potassium Level 4.2 Red Blood Count 3.97 L Red Cell Distribution Width 14.4 Sodium Level 142 White Blood Count 4.2 L Urine Bilirubin NEGATIVE Urine Clarity CLEAR Urine Color LT. YELLOW Urine Glucose NEGATIVE Urine Hemoglobin NEGATIVE Urine Ketones NEGATIVE Urine Leukocyte Esterase NEGATIVE Urine Nitrite NEGATIVE Urine Specific [place] 1.010 Urine Total Protein NEGATIVE Urine Urobilinogen 0.2 E.U./dL Urine pH 6.0 Medications Medications Current Medications Potassium Chloride/Dextrose/ Sod Cl (D5-1/2ns + KCl 20 Meq) 1,000 ml @ 75 mls/ hr [id number] IV Last administered on 10/18/16 18:07; Admin Dose 75 MLS/HR; Start 10/13/16 at 11:58 Ondansetron HCl (Zofran Inj) 4 mg Q6H PRN IV NAUSEA AND/OR VOMITING Last administered on 10/14/16 09:08; Admin Dose 4 MG; Start 10/13/16 at 12:00 IV Flush 10 ml 10 ml PRN PRN IV IV PROTOCOL; Start 10/13/16 at 14:30 Multivitamins/ Thiamine HCl/ Folic Acid/Sodium Chloride (Mvi-12 Adult/ Vitamin B1/Folic Acid/NS) 1,011.2 ml @ 125 mls/ hr DAILY@09 IVPB Last administered on 10/18/16 09:24; Admin Dose 125 MLS/HR; Start 10/14/16 at 09:00 Acetaminophen/ Hydrocodone Bitart ([place] (5/325)) 1 tab Q6H PRN PO MODERATE PAIN LEVEL 4-6 Last administered on 10/15/16 17:42; Admin Dose 1 TAB; Start at 20:00 Morphine Sulfate (morphine) 4 mg Q3H PRN IV PAIN LEVEL 6-10 Last administered on 10/14/16 06:12; Admin Dose 4 MG; Start 10/13/16 at 23:00 Hydromorphone HCl (Dilaudid) 0.5 mg Q3H PRN IV PAIN Last administered on 18:12; Admin Dose 0.5 MG; Start 10/14/16 at 09:00 Chlordiazepoxide (Librium) 50 mg TID PRN PO tremors Last administered on 12:09; Admin Dose 50 MG; Start 10/17/16 at 15:00 Famotidine (Pepcid) 20 mg BID PO Last administered on 10/18/16 08:37; Admin Dose 20 MG; Start 10/17/16 at 21:00 GORDO TIWARI MD Oct 18, 2016 19:43
[2016-10-18 20:00] VITALS: BP 124/78; PULSE 78; RESP 18
[2016-10-19] MEDS: HYDROmorphONE 1 MG/ML SYG IV PRN ×5 (00:18→13:08)
[2016-10-19 07:02] LABS: POTASSIUM 4.2 mmol/L (3.5-5.1)
[2016-10-19 07:04] LABS: CREATININE 1.49 mg/dl (0.61-1.24)
[2016-10-19 07:05] LABS: CALCIUM 8.8 mg/dl (8.4-10.2)
--- NOTE | 2016-10-19 07:44 | CONS ---
Date/Time of Note Date/Time of Note DATE: 10/19/16 TIME: 07:44 Assessment/Plan Assessment/Plan Additional Assessment/Plan 31 yo Male with 1) Pancreatitis 2) Hyperkalemia -Resolved 3) [place]- Non Oliguric 4) Hypomagnesemia 5) Hypophosphatemia 6) Mild Rhabdomyolysis. Stable and improved Will cont to monitor UO, Electrolytes, Renal Function Cont with IVFS Cont to monitor CK levels daily until normalized Renal US Reviewed and is unremarkable. Will cont to closely follow along with you. Further recommendations to follow. Consultation Date/Type/Reason Admit Date/Time Oct 13, 2016 at 12:18 Type of Consultation: Nephrology Referring Provider: FELIPA CARR Exam/Review of Systems Vital Signs Vitals Vital Signs Date Time Temp Pulse Resp B/P Pulse Ox O2 Delivery O2 Flow Rate FiO2 10/18/16 20:00 98.6 78 18 124/78 98 Room Air Intake and Output 10/18/16 10/18/16 10/19/16 15:00 23:00 07:00 Intake Total 2081.5 ml 825 ml Balance 2081.5 ml 825 ml Results Result Diagram: 10/18/16 0530 10/19/16 0547 Results 24 hrs Laboratory Tests Test 10/18/16 14:45 10/19/16 05:47 Urine Bilirubin NEGATIVE Urine Clarity CLEAR Urine Color LT. YELLOW Urine Glucose NEGATIVE Urine Hemoglobin NEGATIVE Urine Ketones NEGATIVE Urine Leukocyte Esterase NEGATIVE Urine Nitrite NEGATIVE Urine Specific [place] 1.010 Urine Total Protein NEGATIVE Urine Urobilinogen 0.2 E.U./dL Urine pH 6.0 Anion Gap 15 Blood Urea Nitrogen 22 H Calcium Level 8.8 Carbon Dioxide Level 26 Chloride Level 106 Creatinine 1.49 H Glucose Level 96 Magnesium Level 1.9 Potassium Level 4.2 Sodium Level 143 Medications Medications Current Medications Potassium Chloride/Dextrose/ Sod Cl (D5-1/2ns + KCl 20 Meq) 1,000 ml @ 75 mls/ hr [id number] IV Last administered on 10/18/16 18:07; Admin Dose 75 MLS/HR; Start 10/13/16 at 11:58 Ondansetron HCl (Zofran Inj) 4 mg Q6H PRN IV NAUSEA AND/OR VOMITING Last administered on 10/14/16 09:08; Admin Dose 4 MG; Start 10/13/16 at 12:00 IV Flush 10 ml 10 ml PRN PRN IV IV PROTOCOL; Start 10/13/16 at 14:30 Multivitamins/ Thiamine HCl/ Folic Acid/Sodium Chloride (Mvi-12 Adult/ Vitamin B1/Folic Acid/NS) 1,011.2 ml @ 125 mls/ hr DAILY@09 IVPB Last administered on 10/18/16 09:24; Admin Dose 125 MLS/HR; Start 10/14/16 at 09:00 Acetaminophen/ Hydrocodone Bitart ([place] (5/325)) 1 tab Q6H PRN PO MODERATE PAIN LEVEL 4-6 Last administered on 10/15/16 17:42; Admin Dose 1 TAB; Start at 20:00 Morphine Sulfate (morphine) 4 mg Q3H PRN IV PAIN LEVEL 6-10 Last administered on 10/14/16 06:12; Admin Dose 4 MG; Start 10/13/16 at 23:00 Hydromorphone HCl (Dilaudid) 0.5 mg Q3H PRN IV PAIN Last administered on 06:29; Admin Dose 0.5 MG; Start 10/14/16 at 09:00 Chlordiazepoxide (Librium) 50 mg TID PRN PO tremors Last administered on 21:17; Admin Dose 50 MG; Start 10/17/16 at 15:00 Famotidine (Pepcid) 20 mg BID PO Last administered on 10/18/16 21:17; Admin Dose 20 MG; Start 10/17/16 at 21:00 JANESSA ZAZUETA MD Oct 19, 2016 07:44
[2016-10-19] MEDS: D5W-0.45 NACL + KCL 20 MEQ 1,000 ML IV SCH (08:06)
[2016-10-19 08:10] VITALS: BP 106/59; RESP 18
[2016-10-19] MEDS: FAMOTIDINE 20 MG TAB PO SCH (09:10)
[2016-10-19] MEDS: MULTIVITAMINS 10 ML, THIAMINE 100 MG, FOLIC ACID 1 MG in SOD CHLORIDE 0.9% 1,000 ML IVPB SCH (09:10)
[2016-10-19 11:47] LABS: HEMATOCRIT 34.5 % (42.0-52.0); HEMOGLOBIN 11.8 g/dl (14.0-18.0); RED BLOOD COUNT 3.93 10^6/ul (4.70-6.10); WHITE BLOOD COUNT 4.2 10^3/ul (4.8-10.8)
[2016-10-19 11:48] LABS: BASOPHILS % 0.5 % (0.0-2.0); EOSINOPHILS # 0.2 10^3/ul (0.0-0.5); EOSINOPHILS % 4.5 % (0.0-7.0); LYMPHOCYTES % 23.4 % (15.0-51.0); MEAN CORPUSCULAR HGB CONC 34.2 g/dl (32.0-37.0); MEAN CORPUSCULAR VOLUME 87.8 fl (82.0-101.0); MEAN PLATELET VOLUME 11.2 fl (7.4-10.4); MONOCYTE # 0.4 10^3/ul (0.3-0.9); MONOCYTES % 10.3 % (0.0-11.0); NEUTROPHIL # 2.6 10^3/ul (1.6-7.5); NEUTROPHILS % 61.1 % (39.0-77.0); PLATELET COUNT 154 10^3/UL (140-440); RED CELL DISTRIBUTION WIDTH 13.8 % (11.5-14.5)
[2016-10-19] MEDS: CHLORDIAZEPOXIDE 25 MG CAP PO PRN (12:17)
== END 2016-10-19 15:55 | disposition home or self-care (01) | DRG 439 ==
LOC: E/R 08:31 → MS2 12:18
PROVIDERS: ADMIT Family Medicine; ATTEND Family Medicine
PROC: 02HV33Z Insertion of Infusion Device into Superior Vena Cava, Percutaneous Approach (ICD-10-PCS; principal; 2016-10-13)
DX: K85.90 Acute pancreatitis without necrosis or infection, unspecified (principal); N17.9 Acute kidney failure, unspecified; E87.2 Acidosis; M62.82 Rhabdomyolysis; E83.42 Hypomagnesemia; E83.39 Other disorders of phosphorus metabolism; E87.5 Hyperkalemia; R55 Syncope and collapse; F10.20 Alcohol dependence, uncomplicated; F11.10 Opioid abuse, uncomplicated; E86.0 Dehydration; F17.200 Nicotine dependence, unspecified, uncomplicated
CPT/HCPCS: 36569; 70450; 71010; 76705; 76775; 76937; 80048; 80053; 80061; 80306; 80307; 81001; 81003; 82150; 82550; 82553; 82962; 83036; 83690; 83735; 84100; 84155; 84300; 84439; 84443; 84484; 85025; 86160; 87040; 87086; 93005; 96372; 96374; 96375; J1170; J1885; J2270; J2405; J2543; J3411; J3480; J7030

== ENCOUNTER 2016-11-21 05:18 | Emergency (ER) | payer OTHER ==
[~2016-11-21] VITALS: Ht 185.4 cm; Wt 98.0 kg
[~2016-11-21 05:18] MED LIST: FOLI-49 PO; HYDR-906 PO; SENN-53 PO
[2016-11-21 05:28] VITALS: Ht 185.4 cm; Wt 98.0 kg
[2016-11-21] MEDS ORDERED: LORAZEPAM 1 MG TAB PO ONE (06:30)
--- NOTE | 2016-11-21 06:53 | ERD ---
ER Documentation Chief Complaint Date/Time DATE: 11/21/16 TIME: 06:49 Chief Complaint Unable to sleep. feeling anxious HPI This a 31-year-old male who presents to the emergency department today complaining of feeling anxious. Patient states he also is having inability to sleep. Patient states that he was seen here last month for pancreatitis from alcohol and states that since then he has been having difficulty. States that prior to being admitted for the pancreatitis he had been in a treatment center for drug abuse. States he had been doing well until after he got out. Denies any nausea vomiting, fevers or chills, chest pain or shortness of breath. ROS All systems reviewed and are negative except as per history of present illness. Medications Home Meds Active Scripts Folic Acid* (Folic Acid*) 1 Mg Tablet, 1 MG PO DAILY for 30 Days, TAB Prov:ROBBIIDORFELIPA 10/16/16 Sennosides* (Senna Lax*) 8.6 Mg Tablet, 1 TAB PO Q12H Y for CONSTIPATION, #30 TAB Prov:FELIPA CARR 10/16/16 Hydrocodone/Acetaminophen ([place] 5-325 Tablet) 1 Each Tablet, 1 EACH PO Q4, #20 TAB Prov:DELMERRFELIPA 10/16/16 Allergies Allergies: Coded Allergies: No Known Drug Allergies (Verified Allergy, Unknown, 10/13/16) PMhx/Soc History of Surgery: No Anesthesia Reaction: No Hx Neurological Disorder: No Hx Respiratory Disorders: No Hx Cardiac Disorders: No Hx Psychiatric Problems: No Hx Miscellaneous Medical Probl: Yes (pancreatitis, rhabdo) Hx Alcohol Use: Yes (VODKA, 2 GLASS, 3 DAYS AGO) Hx Substance Use: Yes Hx Tobacco Use: No Smoking Status: Never smoker Physical Exam Vitals Vital Signs Date Time Temp Pulse Resp B/P Pulse Ox O2 Delivery O2 Flow Rate FiO2 11/21/16 05:28 97.6 81 20 142/87 99 Physical Exam Const: Pleasant, no acute distress Head: Atraumatic Eyes: Normal Conjunctiva ENT: Normal External Ears, Nose and Mouth. Neck: Full range of motion..~ No meningismus. Resp: Clear to auscultation bilaterally. No absent breath sounds. No wheezing. Cardio: Regular rate and rhythm, no murmurs Abd: Soft, non tender, non distended. Normal bowel sounds Skin: No petechiae or rashes Neur: Awake and alert Psych: Normal Mood and Affect Results 24 hrs Current Medications Medications (Trade) Dose Ordered Sig/Sheryl Route PRN Reason Start Time Stop Time Status Last Admin Dose Admin Lorazepam (Ativan) 1 mg ONCE ONCE PO 11/21/16 06:30 3 06:31 DC 11/21/16 06:32 Procedures/MDM This is a 31-year-old male who presents to the emergency department today for reports of feeling anxious and having difficulty sleeping. Patient did indicate that he had been in an inpatient facility for drug abuse and was doing well until he got out and started drinking and developed alcoholic pancreatitis. Patient states that he understands he has been self-medicating and really does not want to take any medication if he does not have to. Patient states he is in the process of getting a primary care physician and does not have referral yet for a psych facility. Patient did indicate that he is considering checking back into the treatment facility as he felt very well supported there. Patient's vital signs are stable. He is not tachycardic. He is afebrile and otherwise well-appearing. His oxygen saturation is 99%. Do not feel the patient requires further workup at this time. Low suspicion for PE , acute AL, pneumothorax. Patient denied any recent drug abuse and last had alcohol 2 days ago. Patient symptoms at this time appear most consistent with anxiety. I did explain to the patient that I would give him a medicine while he was here however I would not discharge him home on any medications given his history of drug abuse with opiates and heroin. Patient was very understanding of that and was in agreement with the plan. Patient was given 1 Ativan here in the emergency department. At this time the patient is stable for discharge and outpatient management. Patient should follow up with their PCP in the next 1-2 days. They may return to the emergency department sooner for any persistent or worsening of symptoms. Patient understood and agreed with the plan. Departure Diagnosis: Primary Impression: Anxiety Condition: Fair Patient Instructions: Your Body's Response to Anxiety Referrals: your PCP and treatment center Additional Instructions: Call your primary care doctor TOMORROW for an appointment during the next 1-2 days.See the doctor sooner or return here if your condition worsens before your appointment time. Check back into your treatment center for further evaluation and management and referral Make an appointment with your primary care physician for referral to psychiatrist JHON PARIKH PA-C Nov 21, 2016 06:53
== END 2016-11-21 06:52 | disposition home or self-care (01) ==
LOC: FTE 05:18
DX: F41.9 Anxiety disorder, unspecified (principal)
CPT/HCPCS: Z7502; Z7610; 99283

== ENCOUNTER 2016-11-25 19:17 | Emergency (ER) | payer OTHER ==
[~2016-11-25] VITALS: Ht 185.4 cm; Wt 95.4 kg
[2016-11-25 19:53] VITALS: Ht 185.4 cm; Wt 95.4 kg
--- NOTE | 2016-11-25 21:44 | ERD ---
ER Documentation Chief Complaint Date/Time DATE: 11/25/16 TIME: 21:42 Chief Complaint SEVERE ANXIETY, MOM STATES ATIVAN MADE IT WORSE, +ALCOHOL USE NO SI/HI HPI 31-year-old male who presents with his mother for severe anxiety. His mother is concerned because the patient has been confused and possibly seeing things over the past 24-48 hours. The patient thinks that it was Ativan that was recently given to him. The patient does report recurrent alcohol and heroin abuse. He denies any current ingestion or intoxication. He denies any suicidal or homicidal ideation, no head trauma or headache. ROS All systems reviewed and are negative except as per history of present illness. Medications Home Meds Active Scripts Folic Acid* (Folic Acid*) 1 Mg Tablet, 1 MG PO DAILY for 30 Days, TAB Prov:REGIDORFELIPA 10/16/16 Sennosides* (Senna Lax*) 8.6 Mg Tablet, 1 TAB PO Q12H Y for CONSTIPATION, #30 TAB Prov:REGMARYRFELIPA 10/16/16 Hydrocodone/Acetaminophen ([place] 5-325 Tablet) 1 Each Tablet, 1 EACH PO Q4, #20 TAB Prov:REGIDORFELIPA 10/16/16 Allergies Allergies: Coded Allergies: No Known Drug Allergies (Verified Allergy, Unknown, 10/13/16) PMhx/Soc History of Surgery: No Anesthesia Reaction: No Hx Neurological Disorder: No Hx Respiratory Disorders: No Hx Cardiac Disorders: No Hx Psychiatric Problems: Yes (ETOH abuse, heroin abuse) Hx Miscellaneous Medical Probl: Yes (pancreatitis, rhabdo) Hx Alcohol Use: Yes (ETOH abuse,vodka /5 pint 11/25/16) Hx Substance Use: Yes (heroin abuse last used 11/23/16) Hx Tobacco Use: No (quit 2015) Smoking Status: Former smoker FmHx Family History: No diabetes Physical Exam Vitals Vital Signs Date Time Temp Pulse Resp B/P Pulse Ox O2 Delivery O2 Flow Rate FiO2 11/25/16 19:53 98.9 110 22 127/66 99 Physical Exam General: Well developed, well nourished, no acute distress Head: Normocephalic, atraumatic. Eyes: Pupils equally reactive, EOM intact ENT: Moist mucous membranes Neck: Supple, no lymphadenopathy Respiratory: Lungs clear bilaterally, no distress Cardiovascular: RRR, no murmurs, rubs, or gallops Abdominal: Soft, non-tender, non-distended, no peritoneal signs : Deferred MSK: No edema, no unilateral swelling, 5/5 strength Neurologic: Alert and oriented, moving all extremities, normal speech, no focal weakness, no cerebellar signs Skin: Scratching and excoriations to bilateral upper extremities Psych: No suicidal ideation Result Diagram: 11/25/16215811/25/162158 Results 24 hrs Laboratory Tests Test 11/25/16 21:30 11/25/16 21:59 Urine Amphetamines Screen Negative Urine Barbiturates Negative Urine Benzodiazepines Screen Negative Urine Cannabinoids Negative Urine Cocaine Screen Negative Urine Opiates Screen Positive Alanine Aminotransferase (ALT/SGPT) 30IU/L Albumin 4.6g/dl Albumin/Globulin Ratio 1.48 Alkaline Phosphatase 78IU/L Anion Gap 20 Aspartate Amino Transf (AST/SGOT) 39IU/L Basophils # 0.010^3/ul Basophils % 0.5% Blood Urea Nitrogen 11mg/dl Calcium Level 9.2mg/dl Carbon Dioxide Level 26mmol/L Chloride Level 105mmol/L Creatinine 0.88mg/dl Direct Bilirubin 0.00mg/dl Eosinophils # 0.210^3/ul Eosinophils % 3.0% Ethyl Alcohol Level 30.0mg/dl Globulin 3.10g/dl Glucose Level 93mg/dl Hematocrit 36.7% Hemoglobin 12.5g/dl Indirect Bilirubin 0.7mg/dl Lymphocytes # 1.710^3/ul Lymphocytes % 26.8% Mean Corpuscular Hemoglobin 29.6pg Mean Corpuscular Hemoglobin Concent 34.1g/dl Mean Corpuscular Volume 86.8fl Mean Platelet Volume 10.0fl Monocytes # 0.510^3/ul Monocytes % 8.1% Neutrophils # 3.910^3/ul Neutrophils % 61.3% Nucleated Red Blood Cells # 0.010^3/ul Nucleated Red Blood Cells % 0.0/100WBC Platelet Count 16339^3/UL Potassium Level 4.1mmol/L Red Blood Count 4.2310^6/ul Red Cell Distribution Width 14.3% Sodium Level 147mmol/L Total Bilirubin 0.7mg/dl Total Protein 7.7g/dl White Blood Count 6.310^3/ul Procedures/MDM LAB INTERPRETATION: Slight alcohol elevation MEDICAL DECISION MAKING: The patient's presentation is consistent with underlying psychiatric illness and likely exacerbation of this illness and/or psychosis. The patient also has a large component of polysubstance abuse that likely is contributing to these symptoms. No evidence of acute alcohol withdrawal. I have a much lower clinical concern for delirium or acute organic pathology such as toxicologic, metabolic, ischemic, intracranial hemorrhage, infectious process. However, we must rule this out prior to relying a diagnosis of underlying psychiatric illness. The patient's workup will include medical screening examination, laboratory analysis, and diagnostic imaging such as EKG, chest x-ray or CT brain as indicated. If the patient's medical examination and laboratory analysis do not reveal acute organic pathology the patient will be medically cleared for psychiatric evaluation. ER COURSE: The patient's laboratory analysis, diagnostic imaging do not suggest an acute organic pathology. At this time I believe the patient's presentation is very consistent with underlying psychiatric illness. The patient is medically cleared for psychiatric evaluation. I kept the patient and/or family informed of laboratory and diagnostic imaging results throughout the emergency room course. CONSULTATION: Psychiatric consultation: Telemetry medicine psychiatry has been consulted on this case to evaluate the patient for possible acute psychiatric illness that would require inpatient hospitalization. DISPOSITION PLAN: The patient does not meet criteria for 5150 hold. Outpatient polysubstance abuse resources have been provided. The patient can be safely discharged with family. Departure Diagnosis: Primary Impression: Polysubstance abuse Condition: TAMIA Mcnulty MD Nov 25, 2016 21:43
--- NOTE | 2016-11-25 22:02 | PSY ---
Date/Time of Note Date/Time of Note DATE: 11/25/16 TIME: 21:55 Psychiatric Subjective Eval Consent Pt consented to telemedicine: Yes Subjective Evaluation Patient location: emergency Chief Complaint: SEVERE ANXIETY, MOM STATES ATIVAN MADE IT WORSE, +ALCOHOL USE NO SI/HI Reason for consult: Psychiatric Evaluation History of present illness Patient reports a long history of drug issues. Recently, he had been clean for 6 months. However, a few weeks ago he started using again. Today, his mom brought him to the ER because he was acting strange. Patient admitted to taking at least 3mg of ativan and drinking alcohol. At least one "shot" this morning. Patient reports heroin use 2 days ago. Pt reports when he is clean he does well. However, he has been having anxiety over going back to rehab. He denies suicidal ideation and homicidal ideation. No current hallucinations or delusions. Past psychiatric history None, per patient. All substance related. However, someone recently prescribed him ativan which "helped." Hospitalization: no Family History DEnies Medical history Problems Medical Problems: (1) Acute pancreatitis Status: Acute (2) Acute renal insufficiency Status: Acute (3) Anxiety Status: Acute (4) Anxiety Status: Acute (5) Dehydration Status: Acute (6) Opiate abuse, episodic Status: Acute (7) Polysubstance abuse Status: Acute (8) Syncope Status: Acute Allergies: Coded Allergies: No Known Drug Allergies (Verified Allergy, Unknown, 10/13/16) Substance Abuse Substance abuse history: Yes Prior substance abuse treatmen: Yes Social History Marital status: single Level of education: HS DPA/Conservatorship: No Occupation/Detention: [employer] Psychiatric Objective Eval Mental Status Examination: Appearance: Groomed Eye Contact: Good Psychomotor Activity: Slow Behavior: Cooperative Speech: Soft, Slurred (Mildly slurred) AFFECT: Appropriate Mood: Appropriate/Full Thought Content: Normal Suicidal: No Homicidal: No On 72 hour hold: No Orientation: x3 Cognition: Alert Insight: Mild Judgement: Moderate Assessment and Plan Assessment/Diagnosis [place] I: Unspecified Anxiety Disorder, Opiate Use Disorder, Alcohol Use Disorder, Benzodiazepine Use Disorder Recommendation/Plan Medication Management None. Do not combine sedatives, opiates and alcohol or any others substances. Psychotherapy NA Pt. Caregiver/Family Education N/A Follow-up/Disposition Please refer patient to rehab. He does not appear suicidal or homicidal. While he is a little slurred, you might consider further observation in the ER before discharge. However, he does not appear to meet the criteria for involuntary hospitalization. LEYDI CID Nov 25, 2016 22:02
[2016-11-25 22:22] LABS: BARBITURATES Negative (NEGATIVE); BENZODIAZEPINES Negative (NEGATIVE); CANNABINOIDS Negative (NEGATIVE); COCAINE Negative (NEGATIVE); OPIATES Positive (NEGATIVE)
[2016-11-25 22:26] LABS: ADD SCAN DIFF NO
[2016-11-25 22:28] LABS: BASOPHILS % 0.5 % (0.0-2.0); EOSINOPHILS # 0.2 10^3/ul (0.0-0.5); HEMATOCRIT 36.7 % (42.0-52.0); HEMOGLOBIN 12.5 g/dl (14.0-18.0); LYMPHOCYTES # 1.7 10^3/ul (0.8-2.9); LYMPHOCYTES % 26.8 % (15.0-51.0); MEAN CORPUSCULAR HEMOGLOBIN 29.6 pg (29.0-33.0); MEAN CORPUSCULAR HGB CONC 34.1 g/dl (32.0-37.0); MEAN CORPUSCULAR VOLUME 86.8 fl (82.0-101.0); MONOCYTE # 0.5 10^3/ul (0.3-0.9); MONOCYTES % 8.1 % (0.0-11.0); NEUTROPHIL # 3.9 10^3/ul (1.6-7.5); NEUTROPHILS % 61.3 % (39.0-77.0); PLATELET COUNT 165 10^3/UL (140-415); RED BLOOD COUNT 4.23 10^6/ul (4.70-6.10); RED CELL DISTRIBUTION WIDTH 14.3 % (11.5-14.5); WHITE BLOOD COUNT 6.3 10^3/ul (4.8-10.8)
[2016-11-25 22:41] LABS: ALBUMIN 4.6 g/dl (3.3-4.9)
[2016-11-25 22:42] LABS: POTASSIUM 4.1 mmol/L (3.5-5.1)
[2016-11-25 22:44] LABS: ALBUMIN/GLOBULIN RATIO 1.48; BILIRUBIN,INDIRECT 0.7 mg/dl (0-1.1); BILIRUBIN,TOTAL 0.7 mg/dl (0.2-1.3); CREATININE 0.88 mg/dl (0.61-1.24); TOTAL PROTEIN 7.7 g/dl (6.1-8.1)
[2016-11-25 22:45] LABS: CALCIUM 9.2 mg/dl (8.4-10.2)
[2016-11-25 23:08] VITALS: BP 118/75; PULSE 94; RESP 18; TEMP 98
== END 2016-11-25 23:09 | disposition home or self-care (01) ==
LOC: E/R 19:17
DX: F19.10 Other psychoactive substance abuse, uncomplicated (principal); R40.2142 Coma scale, eyes open, spontaneous, at arrival to emergency department; R40.2252 Coma scale, best verbal response, oriented, at arrival to emergency department; R40.2362 Coma scale, best motor response, obeys commands, at arrival to emergency department; Z87.891 Personal history of nicotine dependence
CPT/HCPCS: 36415; 80053; 80306; 80307; 85025; Z7502; 99283

== ENCOUNTER 2017-03-26 04:56 | Emergency (ER) | END 2017-03-26 09:29 | disposition home or self-care (01) | DX: F10.230 Alcohol dependence with withdrawal, uncomplicated (principal); F41.9 Anxiety disorder, unspecified; R10.13 Epigastric pain; K29.20 Alcoholic gastritis without bleeding; R11.0 Nausea; Z87.891 Personal history of nicotine dependence | CPT/HCPCS: 80053; 81001; 83690; 85025; J7030; Z7502; Z7610 ==

== ENCOUNTER 2017-03-27 04:42 | Inpatient (IN) | payer MEDICAID ==
[~2017-03-27] VITALS: Ht 185.4 cm; Wt 100.0 kg
[~2017-03-27 04:42] MED LIST changes: +CHLO25CA9 PO; +FAMO-96 PO; -FOLI-49 PO; -HYDR-906 PO; +ONDA4TAB14 PO; -SENN-53 PO
[2017-03-27] MEDS ORDERED: morphine 4 MG/ML VIAL IV STA (06:14)
[2017-03-27] MEDS ORDERED: ONDANSETRON 4 MG INJ IV STA ×2 (06:14→06:55)
[2017-03-27] MEDS ORDERED: SOD CHLORIDE 0.9% 1,000 ML IV STA (06:14)
[2017-03-27 06:25] LABS: ADD SCAN DIFF NO
[2017-03-27 06:27] LABS: BASOPHILS % 0.2 % (0.0-2.0); EOSINOPHILS # 0.1 10^3/ul (0.0-0.5); EOSINOPHILS % 1.1 % (0.0-7.0); HEMATOCRIT 40.2 % (42.0-52.0); HEMOGLOBIN 13.8 g/dl (14.0-18.0); LYMPHOCYTES # 0.6 10^3/ul (0.8-2.9); LYMPHOCYTES % 7.7 % (15.0-51.0); MEAN CORPUSCULAR HEMOGLOBIN 29.1 pg (29.0-33.0); MEAN CORPUSCULAR HGB CONC 34.3 g/dl (32.0-37.0); MEAN CORPUSCULAR VOLUME 84.6 fl (82.0-101.0); MEAN PLATELET VOLUME 10.8 fl (7.4-10.4); MONOCYTE # 0.6 10^3/ul (0.3-0.9); MONOCYTES % 7.3 % (0.0-11.0); NEUTROPHIL # 6.9 10^3/ul (1.6-7.5); NEUTROPHILS % 83.3 % (39.0-77.0); PLATELET COUNT 151 10^3/UL (140-415); RED BLOOD COUNT 4.75 10^6/ul (4.70-6.10); RED CELL DISTRIBUTION WIDTH 14.6 % (11.5-14.5); WHITE BLOOD COUNT 8.3 10^3/ul (4.8-10.8)
[2017-03-27 06:32] LABS: ADD UMIC YES; ALBUMIN 5.1 g/dl (3.3-4.9); ALBUMIN/GLOBULIN RATIO 1.82; BILIRUBIN,INDIRECT 1.2 mg/dl (0-1.1); BILIRUBIN,TOTAL 1.2 mg/dl (0.2-1.3); CALCIUM 10.1 mg/dl (8.4-10.2); CREATININE 0.89 mg/dl (0.61-1.24); POTASSIUM 3.6 mmol/L (3.5-5.1); TOTAL PROTEIN 7.9 g/dl (6.1-8.1); UR ASCORBIC ACID NEGATIVE (NEGATIVE); UR BILIRUBIN (Dip) NEGATIVE (NEGATIVE); UR BLOOD (Dip) NEGATIVE (NEGATIVE); UR CLARITY CLEAR (CLEAR); UR COLOR YELLOW (YELLOW); UR GLUCOSE (Dip) NEGATIVE (NEGATIVE); UR KETONES (Dip) NEGATIVE (NEGATIVE); UR LEUKOCYTE ESTERASE (Dip) NEGATIVE Leu/ul (NEGATIVE); UR MUCUS FEW /HPF (NONE SEEN); UR NITRITE (Dip) NEGATIVE (NEGATIVE); UR RBC 1 /HPF (0-5); UR SPECIFIC GRAVITY (Dip) 1.032 (1.003-1.030); UR TOTAL PROTEIN (Dip) 1+ mg/dl (NEGATIVE); UR UROBILINOGEN (Dip) NEGATIVE (NEGATIVE)
[2017-03-27] MEDS ORDERED: HYDROmorphONE 1 MG/ML SYG IV STA ×2 (07:09→11:34)
[2017-03-27] MEDS ORDERED: ACETAMINOPHEN 325 MG TAB PO PRN ×2 (07:30→09:30)
[2017-03-27] MEDS ORDERED: ONDANSETRON 4 MG INJ IV PRN ×2 (07:30→09:30)
--- NOTE | 2017-03-27 07:33 | ERA ---
ER Documentation Chief Complaint Date/Time DATE: 03/27/17 TIME: 07:30 Chief Complaint c/o LUQ pain. Seen here yesterday for same. (+) N/V. HPI Patient is a 31-year-old male with pancreatitis who presents with abdominal pain. He said that he relapsed from his alcohol sobriety. He last had alcohol 2 days ago. He has abdominal pain which started yesterday. He was seen in the emergency department yesterday but his lipase was normal. He feels like this is pancreatitis however and feels like previous episodes of pancreatitis. He feels short of breath. He tried heroin to help with his pain. He says the pain is 9 out of 10. Upon review of old medical records this is the patient's fifth visit since September 2016. He does not currently have a primary doctor. ROS All systems reviewed and are negative except as per history of present illness. Medications Home Meds Active Scripts Chlordiazepoxide* (Chlordiazepoxide*) 25 Mg Capsule, 25 MG PO Q8 Y for ANXIETY, #10 CAP Prov:YUN DELGADO MD 03/26/17 Ondansetron (Ondansetron Odt) 4 Mg Tab.rapdis, 4 MG PO Q6H Y for NAUSEA AND/OR VOMITING, #10 TAB Prov:YUN DELGADO MD 03/26/17 Famotidine* (Pepcid*) 20 Mg Tablet, 20 MG PO BID for 7 Days, TAB Prov:YUN DELGADO MD 03/26/17 Discontinued Scripts Folic Acid* (Folic Acid*) 1 Mg Tablet, 1 MG PO DAILY for 30 Days, TAB Prov:FELIPA CARR 10/16/16 Sennosides* (Senna Lax*) 8.6 Mg Tablet, 1 TAB PO Q12H Y for CONSTIPATION, #30 TAB Prov:FELIPA CARR 10/16/16 Hydrocodone/Acetaminophen ([place] 5-325 Tablet) 1 Each Tablet, 1 EACH PO Q4, #20 TAB Prov:FELIPA CARR 10/16/16 Allergies Allergies: Coded Allergies: No Known Drug Allergies (Verified Allergy, Unknown, 03/27/17) PMhx/Soc History of Surgery: No Anesthesia Reaction: No Hx Neurological Disorder: No Hx Respiratory Disorders: No Hx Cardiac Disorders: No Hx Psychiatric Problems: Yes (ETOH abuse, heroin abuse) Hx Miscellaneous Medical Probl: Yes (pancreatitis, rhabdo) Hx Alcohol Use: Yes (ETOH abuse,vodka / pint 11/25/16) Hx Substance Use: Yes (heroin abuse last used 11/23/16) Hx Tobacco Use: No (quit 2015) Smoking Status: Current every day smoker FmHx Family History: No diabetes Physical Exam Vitals Vital Signs Date Time Temp Pulse Resp B/P Pulse Ox O2 Delivery O2 Flow Rate FiO2 03/27/17 07:22 80 18 142/69 100 Room Air 03/27/17 04:47 98.3 87 18 147/88 98 Physical Exam Const: Moderate distress secondary to pain Head: Atraumatic Eyes: Normal Conjunctiva ENT: Normal External Ears, Nose and Mouth. Neck: Full range of motion..~ No meningismus. Resp: Clear to auscultation bilaterally Cardio: Regular rate and rhythm, no murmurs Abd: Soft, epigastric tenderness to palpation with guarding Skin: No petechiae or rashes Back: No midline or flank tenderness Ext: No cyanosis, or edema Neur: Awake and alert Psych: Normal Mood and Affect Result Diagram: 03/27/17 0500 03/27/17 0500 Results 24 hrs Laboratory Tests Test 03/27/17 05:00 White Blood Count 8.310^3/ul Red Blood Count 4.7510^6/ul Hemoglobin 13.8g/dl Hematocrit 40.2% Mean Corpuscular Volume 84.6fl Mean Corpuscular Hemoglobin 29.1pg Mean Corpuscular Hemoglobin Concent 34.3g/dl Red Cell Distribution Width 14.6% Platelet Count 97628^3/UL Mean Platelet Volume 10.8fl Neutrophils % 83.3% Lymphocytes % 7.7% Monocytes % 7.3% Eosinophils % 1.1% Basophils % 0.2% Nucleated Red Blood Cells % 0.0/100WBC Neutrophils # 6.910^3/ul Lymphocytes # 0.610^3/ul Monocytes # 0.610^3/ul Eosinophils # 0.110^3/ul Basophils # 0.010^3/ul Nucleated Red Blood Cells # 0.010^3/ul Urine Color YELLOW Urine Clarity CLEAR Urine pH 7.0 Urine Specific [place] 1.032 Urine Ketones NEGATIVEmg/dL Urine Nitrite NEGATIVEmg/dL Urine Bilirubin NEGATIVEmg/dL Urine Urobilinogen NEGATIVEmg/dL Urine Leukocyte Esterase NEGATIVELeu/ul Urine Microscopic RBC 1/HPF Urine Microscopic WBC 1/HPF Urine Mucus FEW/HPF Urine Hemoglobin NEGATIVEmg/dL Urine Glucose NEGATIVEmg/dL Urine Total Protein 1+mg/dl Sodium Level 136mmol/L Potassium Level 3.6mmol/L Chloride Level 100mmol/L Carbon Dioxide Level 26mmol/L Anion Gap 14 Blood Urea Nitrogen 11mg/dl Creatinine 0.89mg/dl Glucose Level 128mg/dl Calcium Level 10.1mg/dl Total Bilirubin 1.2mg/dl Direct Bilirubin 0.00mg/dl Indirect Bilirubin 1.2mg/dl Aspartate Amino Transf (AST/SGOT) 34IU/L Alanine Aminotransferase (ALT/SGPT) 35IU/L Alkaline Phosphatase 83IU/L Total Protein 7.9g/dl Albumin 5.1g/dl Globulin 2.80g/dl Albumin/Globulin Ratio 1.82 Lipase 3939U/L Current Medications Medications (Trade) Dose Ordered Sig/Sheryl Route PRN Reason Start Time Stop Time Status Last Admin Dose Admin Sodium Chloride (NS) 1,000 ml @ 1,000 mls/hr Q1H STAT IV 03/27/17 06:14 03/27/17 07:13 DC 03/27/17 06:18 Morphine Sulfate (morphine) 4 mg ONCE STAT IV 03/27/17 06:14 03/27/17 06:15 DC 03/27/17 06:18 Ondansetron HCl (Zofran Inj) 4 mg ONCE STAT IV 03/27/17 06:14 03/27/17 06:15 DC 03/27/17 06:18 Ondansetron HCl (Zofran Inj) 4 mg ONCE STAT IV 03/27/17 06:55 03/27/17 06:56 DC 03/27/17 07:18 Hydromorphone HCl (Dilaudid) 1 mg ONCE STAT IV 03/27/17 07:09 03/27/17 07:10 DC 03/27/17 07:18 Ondansetron HCl (Zofran Inj) 4 mg BRIDGE ORDER PRN IV NAUSEA AND/OR VOMITING 03/27/17 07:30 03/28/17 07:29 Acetaminophen (Tylenol Tab) 650 mg ER BRIDGE PRN PO MILD PAIN/FEVER 03/27/17 07:30 03/28/17 07:29 Procedures/MDM Patient is a 31-year-old male with acute pancreatitis. His lipase was 3900. The patient likely has alcohol induced pancreatitis. The patient will be admitted to the care of Dr. Chiu from the panel team. The patient does not currently have a primary doctor. He was given morphine as well as Dilaudid and Zofran. He was given 1 L of normal saline for fluid resuscitation. The patient will be admitted to a medical surgical bed. Departure Diagnosis: Primary Impression: Abdominal pain Qualified Code: R10.13 - Epigastric pain Additional Impression: Pancreatitis Qualified Code: K85.20 - Alcohol-induced acute pancreatitis, unspecified complication status Condition: AGAPITO Beth MD Mar 27, 2017 07:32
[2017-03-27] MEDS: morphine 2 MG INJ IV PRN ×3 (09:26→20:23)
[2017-03-27] MEDS ORDERED: MAGNESIUM HYDROXIDE 30ML CUP PO PRN (09:30)
[2017-03-27] MEDS ORDERED: ONDANSETRON 4 MG TAB PO PRN (09:30)
[2017-03-27] MEDS ORDERED: CHLORDIAZEPOXIDE 25 MG CAP PO PRN (09:30)
[2017-03-27] MEDS ORDERED: METOCLOPRAMIDE 10 MG INJ IV PRN (09:30)
[2017-03-27] MEDS ORDERED: DOCUSATE SODIUM 100 MG CAP PO PRN (09:30)
[2017-03-27] MEDS ORDERED: NACL 0.9% 3 ML SYG IV SCH (09:30)
--- NOTE | 2017-03-27 13:56 | HP ---
Date/Time of Note Date/Time of Note DATE: 03/27/17 TIME: 13:56 Assessment/Plan VTE Prophylaxis VTE Prophylaxis Intervention: SCD's Lines/Catheters IV Catheter Type (from Nrsg): Saline Lock Assessment/Plan Assessment/Plan 31 yo M with pmhx alcoholism, previous episodes of alcoholic pancreatitis admitted for alcoholic pancreatitis PLAN IVFs, NPO, pain meds check EtOH level, will add PRN ativan if withdrawal signs/symptoms start NRT given documented h/o tobacco abuse DVT prophx cont home meds EtOH cessation advised, sw consult placed for addiction resources HPI/ROS Admit Date/Time Admit Date/Time Hx of Present Illness 31 yo M with pmhx alcoholis, previous admissions for alcoholic pancreatitis admitted for abd pain. Reports pain started last night. Pt previously sober but started drinking again 1 month ago, about 1 pint of hard alcohol daily. No fevers. PMH/Family/Social Past Medical History as per HPI Past Surgical History Past Surgical Hx: no surgical history Social History 1 pint of EtoH/day x past month, lives in the community Smoking Status: Current every day smoker Exam/Review of Systems Vital Signs Vitals Vital Signs Date Time Temp Pulse Resp B/P Pulse Ox O2 Delivery O2 Flow Rate FiO2 03/27/17 12:02 98.1 70 16 136/88 99 Room Air Exam Exam nad, laying in bed MMM EOMI rrr no mrg lungs clear abd mildly ttp in all quadrants no le edema no rashes responds to questions appropriately labs/imaging noted. lipase elevated Labs Result Diagram: 03/27/17 0500 03/27/17 0500 Medications Medications Current Medications Ondansetron HCl (Zofran Tab) 4 mg Q6H PRN PO NAUSEA AND/OR VOMITING; Start at 09:30 Ondansetron HCl (Zofran Inj) 4 mg Q6H PRN IV NAUSEA AND/OR VOMITING; Start at 09:30 Metoclopramide HCl (Reglan) 10 mg Q6H PRN IV NAUSEA AND/OR VOMITING Last administered on 03/27/17t 10:54; Admin Dose 10 MG; Start 03/27/17 at 09:30 Acetaminophen (Tylenol Tab) 650 mg Q6H PRN PO PAIN LEVEL 1-3 OR FEVER; Start at 09:30 Acetaminophen/ Hydrocodone Bitart ([place] (5/325)) 1 tab Q6H PRN PO MODERATE PAIN LEVEL 4-6; Start 03/27/17 at 09:30 Morphine Sulfate (morphine) 2 mg Q4H PRN IV SEVERE PAIN LEVEL 7-10 Last administered on 03/27/17 09:26; Admin Dose 2 MG; Start 03/27/17 at 09:30 Docusate Sodium (Colace) 100 mg Q12H PRN PO CONSTIPATION; Start 03/27/17 at 09: 30 Magnesium Hydroxide (Milk Of Mag) 30 ml DAILY PRN PO CONSTIPATION; Start at 09:30 Enoxaparin Sodium (Lovenox) 40 mg DAILY SC ; Start 03/28/17 at 09:00 Chlordiazepoxide (Librium) 25 mg Q8H PRN PO ANXIETY Last administered on 10:54; Admin Dose 25 MG; Start 03/27/17 at 09:30 Famotidine (Pepcid) 20 mg BID PO ; Start 03/27/17 at 21:00 СЕРГЕЙ BROCK MD Mar 27, 2017 13:56
[2017-03-27 15:07] LABS: BENZODIAZEPINES Negative (NEGATIVE); COCAINE Negative (NEGATIVE)
[2017-03-27 15:09] LABS: BARBITURATES Negative (NEGATIVE); CANNABINOIDS Negative (NEGATIVE); OPIATES Positive (NEGATIVE)
[2017-03-27] MEDS: SOD CHLORIDE 0.9% 1,000 ML IV SCH ×2 (16:40→23:12)
[2017-03-27 17:19] VITALS: PULSE 84; TEMP 98.1
[2017-03-27] MEDS ORDERED: NICOTINE POLACRILEX 4 MG GUM BUCCAL PRN (18:00)
[2017-03-27 18:01] VITALS: Ht 185.4 cm; Wt 100.0 kg
[2017-03-27] MEDS: FAMOTIDINE 20 MG TAB PO SCH (21:00)
[2017-03-27 22:30] VITALS: BP 128/64; RESP 20
[2017-03-27] MEDS ORDERED: HYDROmorphONE 1 MG/ML SYG IV ONE (23:00)
[2017-03-28] MEDS: morphine 2 MG INJ IV PRN ×3 (01:00→08:58)
[2017-03-28 02:00] VITALS: BP 119/65; RESP 20
[2017-03-28] MEDS: SOD CHLORIDE 0.9% 1,000 ML IV SCH ×3 (03:05→16:30)
[2017-03-28] MEDS: HYDROCODONE/APAP (5/325) TAB PO PRN ×3 (06:13→20:19)
[2017-03-28 07:35] VITALS: BP 137/84; RESP 16
[2017-03-28] MEDS: ENOXAPARIN 40 MG/0.4 ML SYG SC SCH (07:59)
[2017-03-28] MEDS: FAMOTIDINE 20 MG TAB PO SCH ×2 (07:59→20:19)
--- NOTE | 2017-03-28 11:33 | PN ---
Date/Time of Note Date/Time of Note DATE: 03/28/17 TIME: 11:32 Assessment/Plan VTE Prophylaxis VTE Prophylaxis Intervention: SCD's Lines/Catheters IV Catheter Type (from Nrsg): Peripheral IV Assessment/Plan Assessment/Plan 31 yo M with pmhx alcoholism, previous episodes of alcoholic pancreatitis admitted for alcoholic pancreatitis PLAN advance diet cont librium-->will taper NRT given documented h/o tobacco abuse DVT prophx cont home meds EtOH cessation advised, sp sw consult Subjective 24 Hr Interval Summary Free Text/Dictation Abd pain still present but wants to try PO Exam/Review of Systems Vital Signs Vitals Vital Signs Date Time Temp Pulse Resp B/P Pulse Ox O2 Delivery O2 Flow Rate FiO2 03/28/17 07:35 98.2 74 16 137/84 100 03/27/17 17:19 Room Air Intake and Output 03/27/17 03/27/17 03/28/17 15:00 23:00 07:00 Intake Total 1250 ml Balance 1250 ml Exam nad ,sitting up in bed listening to music on phone resp nonlabored no gross abd distension no rashes no le edema HIV and HepC Abs neg Results Result Diagram: 03/27/17 0500 03/27/17 0500 Results 24 hrs Laboratory Tests Test 03/28/17 05:52 Hepatitis C Antibody NEGATIVE HIV (1&2) Antibody NEGATIVE Medications Medications Current Medications Ondansetron HCl (Zofran Tab) 4 mg Q6H PRN PO NAUSEA AND/OR VOMITING; Start at 09:30 Ondansetron HCl (Zofran Inj) 4 mg Q6H PRN IV NAUSEA AND/OR VOMITING; Start at 09:30 Metoclopramide HCl (Reglan) 10 mg Q6H PRN IV NAUSEA AND/OR VOMITING Last administered on 03/27/17 10:54; Admin Dose 10 MG; Start 03/27/17 at 09:30 Acetaminophen (Tylenol Tab) 650 mg Q6H PRN PO PAIN LEVEL 1-3 OR FEVER; Start at 09:30 Acetaminophen/ Hydrocodone Bitart ([place] (5/325)) 1 tab Q6H PRN PO MODERATE PAIN LEVEL 4-6 Last administered on 03/28/17 06:13; Admin Dose 1 TAB; Start at 09:30 Morphine Sulfate (morphine) 2 mg Q4H PRN IV SEVERE PAIN LEVEL 7-10 Last administered on 03/28/17 08:58; Admin Dose 2 MG; Start 03/27/17 at 09:30 Docusate Sodium (Colace) 100 mg Q12H PRN PO CONSTIPATION; Start 03/27/17 at 09: 30 Magnesium Hydroxide (Milk Of Mag) 30 ml DAILY PRN PO CONSTIPATION; Start at 09:30 Enoxaparin Sodium (Lovenox) 40 mg DAILY SC Last administered on 03/28/17 07:59 ; Admin Dose 40 MG; Start 03/28/17 at 09:00 Chlordiazepoxide (Librium) 25 mg Q8H PRN PO ANXIETY Last administered on 10:54; Admin Dose 25 MG; Start 03/27/17 at 09:30 Famotidine 20 mg 20 mg BID PO Last administered on 03/28/17 07:59; Admin Dose 20 MG; Start 03/27/17 at 21:00 Sodium Chloride (NS) 1,000 ml @ 125 mls/hr Q8H IV Last administered on 03:05; Admin Dose 125 MLS/HR; Start 03/27/17 at 16:30 Nicotine Polacrilex (Nicorette) 4 mg Q2H PRN BUCCAL agitation; Start 03/27/17 at 18:00 СЕРГЕЙ BROCK MD Mar 28, 2017 11:32
[2017-03-28] MEDS: traMADol 50 MG TAB PO PRN ×2 (12:01→17:55)
[2017-03-28 14:15] VITALS: BP 131/76; RESP 18
[2017-03-28 20:15] VITALS: BP 123/69; RESP 20
[2017-03-28] MEDS: CHLORDIAZEPOXIDE 25 MG CAP PO PRN (21:43)
[2017-03-29] MEDS: SOD CHLORIDE 0.9% 1,000 ML IV SCH ×2 (00:30→08:30)
[2017-03-29 02:00] VITALS: BP 103/57; RESP 20
[2017-03-29] MEDS: traMADol 50 MG TAB PO PRN ×2 (02:19→08:40)
[2017-03-29] MEDS: HYDROCODONE/APAP (5/325) TAB PO PRN ×2 (06:07→12:52)
[2017-03-29 08:00] VITALS: BP 100/62; RESP 16
[2017-03-29] MEDS: FAMOTIDINE 20 MG TAB PO SCH (08:39)
[2017-03-29] MEDS: ENOXAPARIN 40 MG/0.4 ML SYG SC SCH (08:41)
[2017-03-29] MEDS: CHLORDIAZEPOXIDE 25 MG CAP PO PRN (10:08)
--- NOTE | 2017-03-29 11:44 | PDOCDIS ---
Discharge Instructions CONDITION Patient Condition: Stable HOME CARE INSTRUCTIONS: Your diet recommendation is: You need to stop drinking alcohol to prevent pancreatitis flares СЕРГЕЙ BROCK MD Mar 29, 2017 11:44
[2017-03-29] MEDS ORDERED: TRAM50TA2 PO (11:45)
--- NOTE | 2017-03-29 11:50 | DS ---
Date/Time of Note Date/Time of Note DATE: 03/29/17 TIME: 11:45 Discharge Summary Admission/Discharge Info Admit Date/Time Mar 27, 2017 at 07:24 Discharge Date/Time Patient Condition: Stable Consults sw for help with polysubstance abuse Procedures 03.27: HepC Ab negative, HIV AB negative lipase 1300 UDS + for opiates, EtOH level zero Hx of Present Illness 31 yo M with pmhx alcoholis, previous admissions for alcoholic pancreatitis admitted for abd pain. Reports pain started last night. Pt previously sober but started drinking again 1 month ago, about 1 pint of hard alcohol daily. No fevers. Hospital Course Pt admitted for pain management for alcoholic pancreatitis. Started on IVFs and pain meds. Able to tolerate PO x 24 hours at time of discharge. Cessation from EtOH advised to prevent recurrent episodes of acute pancreatitis and to prevent development of chronic pancreatitis. Pt sent out with very short course of pain meds. Pt with minimal Librium use in the hospital (a single 25 mg tab/day) and pt's last drink was day prior to admission which means pt have been without EtOH x 72 hours at time of discharge which is outside the window for acute alcohol withdrawal. Given minimal Librium use in the hospital, no compelling indication to send out on Librium taper. Home Meds Active Scripts Chlordiazepoxide* (Chlordiazepoxide*) 25 Mg Capsule, 25 MG PO Q8 Y for ANXIETY, #10 CAP Prov:YUN DELGADO MD 03/26/17 Ondansetron (Ondansetron Odt) 4 Mg Tab.rapdis, 4 MG PO Q6H Y for NAUSEA AND/OR VOMITING, #10 TAB Prov:YUN DELGADO MD 03/26/17 Famotidine* (Pepcid*) 20 Mg Tablet, 20 MG PO BID for 7 Days, TAB Prov:YUN DELGADO MD 03/26/17 Discontinued Scripts Folic Acid* (Folic Acid*) 1 Mg Tablet, 1 MG PO DAILY for 30 Days, TAB Prov:FELIPA CARR 10/16/16 Sennosides* (Senna Lax*) 8.6 Mg Tablet, 1 TAB PO Q12H Y for CONSTIPATION, #30 TAB Prov:FELIPA CARR 10/16/16 Hydrocodone/Acetaminophen ([place] 5-325 Tablet) 1 Each Tablet, 1 EACH PO Q4, #20 TAB Prov:FELIPA CARR 10/16/16 Follow-up Plan total cessation from EtOH advised Primary Care Provider Care Physician No Primary Time spent on discharge: > 30 minutes СЕРГЕЙ BROCK MD Mar 29, 2017 11:50
== END 2017-03-29 13:04 | disposition home or self-care (01) | DRG 440 ==
LOC: E/R 04:42 → MS3 07:24 → PP2 21:24
PROVIDERS: ADMIT Family Medicine; ATTEND Family Medicine
DX: K85.20 Alcohol induced acute pancreatitis without necrosis or infection (principal); F11.10 Opioid abuse, uncomplicated; F10.10 Alcohol abuse, uncomplicated; F17.200 Nicotine dependence, unspecified, uncomplicated
CPT/HCPCS: 36415; 80053; 80306; 80307; 81001; 83690; 85025; 86703; 86803; 96361; 96374; 96375; 96376; J1170; J1650; J2270; J2405; J2765; J7030